=== PATIENT | male | born 1970 | race Two or more races ===

== ENCOUNTER 2019-05-23 14:50 | Inpatient (IN) | payer MEDICAID ==
[~2019-05-23] VITALS: Ht 165.1 cm; Wt 80.0 kg
[2019-05-23] MEDS ORDERED: UNOBMED (14:57)
--- NOTE | 2019-05-23 15:05 | Emergency Room Report ---
History of Present Illness General Chief Complaint: Back Pain-No Injury Source: Patient Present Illness HPI Patient is a 48-year-old male presented after increased left-sided flank pain. Patient reports having intermittent episodes of pain to the left flank radiating to his groin area. He reports having symptoms for approximately 1 month. This had waxed and waned. He denies any vomiting. He denies any fever. He had been having some intermittent episodes of dysuria. He had prior history of hematuria on urinary testing per his primary care physician. He had been taking medications only for cholesterol. He denies any recent trauma. He reports having a recent prostate check and was told that he had a normal prostate. He does report having some urinary hesitancy.Patient had been having symptoms intermittently for approximately a month. Allergies: Coded Allergies: No Known Allergies (Unverified , 05/23/19) Patient History Past Medical History: see triage record Reviewed Nursing Documentation: PMH: Agreed; PSxH: Agreed Nursing Documentation-PMH Past Medical History: No History, Except For Review of Systems All Other Systems: negative except mentioned in HPI Physical Exam Vital Signs Date Time Temp Pulse Resp B/P (MAP) Pulse Ox O2 Delivery O2 Flow Rate FiO2 05/23/19 14:53 98.4 84 16 126/90 (102) 97 Room Air General Appearance: well appearing, no apparent distress, alert, GCS 15 Head: normocephalic, atraumatic ENT: hearing grossly normal, normal voice Neck: full range of motion, supple Respiratory: no respiratory distress, speaking full sentences Cardiovascular #1: normal inspection Gastrointestinal: normal inspection, non tender, soft Genitourinary: CVA tenderness (L) Musculoskeletal: no calf tenderness Neurologic: normal inspection, alert, oriented x3, responsive, tablet coater III-XII nml as tested, normal gait Psychiatric: mood/affect normal Skin: no rash Medical Decision Making Diagnostic Impression: Primary Impression: Kidney stone on right side Additional Impressions: Left ureteral calculus Gallstones ER Course Patient presented for left flank pain. Differential diagnosis include was not limited to pancreatitis, ureteral stone, testicular torsion, hernia among others.Patient was noted to have some CVA tenderness on the left side. Urinalysis showed minimal leukocytosis. Patient was given IV fluids as well as IV pain medications. He was started on IV antibiotics. CT of the abdomen pelvis read by radiology showed 8-9 mm left ureteral stone. Patient was noted to have continued discomfort. Dr. Oconnor was contacted for urology consult. Dr. Ar Urias was contacted for inpatient management due to capitated physician. Labs Test 05/23/19 15:15 White Blood Count 9.2 K/UL (4.8-10.8) Red Blood Count 4.96 M/UL (4.70-6.10) Hemoglobin 15.2 G/DL (14.2-18.0) Hematocrit 42.9 % (42.0-52.0) Mean Corpuscular Volume 87 FL (80-99) Mean Corpuscular Hemoglobin 30.7 PG (27.0-31.0) Mean Corpuscular Hemoglobin Concent 35.4 G/DL (32.0-36.0) Red Cell Distribution Width 11.2 % (11.6-14.8) Platelet Count 199 K/UL (150-450) Mean Platelet Volume 7.2 FL (6.5-10.1) Neutrophils (%) (Auto) 60.9 % (45.0-75.0) Lymphocytes (%) (Auto) 27.3 % (20.0-45.0) Monocytes (%) (Auto) 7.1 % (1.0-10.0) Eosinophils (%) (Auto) 3.8 % (0.0-3.0) Basophils (%) (Auto) 1.0 % (0.0-2.0) Urine Color Yellow Urine Appearance Clear Urine pH 6 (4.5-8.0) Urine Specific [place] 1.015 (1.005-1.035) Urine Protein 2+ (NEGATIVE) Urine Glucose (UA) Negative (NEGATIVE) Urine Ketones 1+ (NEGATIVE) Urine Blood 4+ (NEGATIVE) Urine Nitrite Negative (NEGATIVE) Urine Bilirubin Negative (NEGATIVE) Urine Urobilinogen 1 MG/DL (0.0-1.0) Urine Leukocyte Esterase 2+ (NEGATIVE) Urine RBC 5-10 /HPF (0 - 0) Urine WBC 2-4 /HPF (0 - 0) Urine Squamous Epithelial Cells None /LPF (NONE/OCC) Urine Calcium Oxalate Crystals Few /LPF (NONE) Urine Bacteria Few /HPF (NONE) Sodium Level 145 MMOL/L (136-145) Potassium Level 3.2 MMOL/L (3.5-5.1) Chloride Level 108 MMOL/L (98-107) Carbon Dioxide Level 26 MMOL/L (21-32) Anion Gap 11 mmol/L (5-15) Blood Urea Nitrogen 13 mg/dL (7-18) Creatinine 1.3 MG/DL (0.55-1.30) Estimat Glomerular Filtration Rate 58.7 mL/min (>60) Glucose Level 128 MG/DL (74-106) Calcium Level 9.1 MG/DL (8.5-10.1) Total Bilirubin 0.5 MG/DL (0.2-1.0) Aspartate Amino Transf (AST/SGOT) 22 U/L (15-37) Alanine Aminotransferase (ALT/SGPT) 30 U/L (12-78) Alkaline Phosphatase 44 U/L (46-116) Total Protein 7.2 G/DL (6.4-8.2) Albumin 3.9 G/DL (3.4-5.0) Globulin 3.3 g/dL Albumin/Globulin Ratio 1.2 (1.0-2.7) Lipase 254 U/L (73-393) Last Vital Signs Date Time Temp Pulse Resp B/P (MAP) Pulse Ox O2 Delivery O2 Flow Rate FiO2 05/23/19 14:53 98.4 84 16 126/90 (102) 97 Room Air Status: improved Disposition: ADMITTED INPATIENT Condition: Stable Kem Frances MD May 23, 2019 15:05
[2019-05-23] MEDS ORDERED: Ketorolac 30mg Inj IV ONE (15:15)
--- NOTE | 2019-05-23 15:15 | NUR ---
ED Nurse Note: dr annette ortiz pt with bedside us. pt tolerates well no n/v
--- NOTE | 2019-05-23 15:27 | NUR ---
ED Nurse Note: pt to ct scan via wc with tech
--- NOTE | 2019-05-23 15:36 | NUR ---
ED Nurse Note: returned from ct
[2019-05-23 15:40] LABS: APPEARANCE,URINE CLEAR; BILIRUBIN, URINE NEGATIVE (NEGATIVE); GLUCOSE, URINE (UA) NEGATIVE (NEGATIVE); KETONES,URINE 1+ (NEGATIVE); LEUKOCYTE ESTERASE ,URINE 2+ (NEGATIVE); NITRITE,URINE NEGATIVE (NEGATIVE); PH,URINE 6 (4.5-8.0); PROTEIN,URINE 2+ (NEGATIVE); UROBILINOGEN,URINE 1 MG/DL (0.0-1.0)
[2019-05-23] MEDS ORDERED: Tamsulosin 0.4mg cap ORAL ONE (15:45)
[2019-05-23 15:47] LABS: COLOR,URINE YELLOW
[2019-05-23 15:48] LABS: EOSINOPHILS % (AUTO) 3.8 % (0.0-3.0); HEMATOCRIT 42.9 % (42.0-52.0); HEMOGLOBIN 15.2 G/DL (14.2-18.0); LYMPHOCYTES % (AUTO) 27.3 % (20.0-45.0); MEAN CORPUSCULAR VOLUME 87 FL (80-99); MONOCYTES % (AUTO) 7.1 % (1.0-10.0); NEUTROPHILS % (AUTO) 60.9 % (45.0-75.0); PLATELET COUNT 199 K/UL (150-450); RED BLOOD COUNT 4.96 M/UL (4.70-6.10); RED CELL DISTRIBUTION WIDTH 11.2 % (11.6-14.8); WHITE BLOOD COUNT 9.2 K/UL (4.8-10.8)
[2019-05-23 15:49] LABS: ANION GAP 11 mmol/L (5-15); BLOOD UREA NITROGEN 13 mg/dL (7-18); CALCIUM 9.1 MG/DL (8.5-10.1); CARBON DIOXIDE 26 MMOL/L (21-32); CHLORIDE 108 MMOL/L (98-107); CREATININE 1.3 MG/DL (0.55-1.30); POTASSIUM 3.2 MMOL/L (3.5-5.1); SODIUM 145 MMOL/L (136-145)
[2019-05-23 15:54] LABS: ALANINE AMINOTRANSFERASE 30 U/L (12-78); ALBUMIN 3.9 G/DL (3.4-5.0); ALBUMIN/GLOBULIN RATIO 1.2 (1.0-2.7); ALKALINE PHOSPHATASE 44 U/L (46-116); ASPARTATE AMINO TRANSFERASE 22 U/L (15-37); BILIRUBIN,TOTAL 0.5 MG/DL (0.2-1.0)
--- NOTE | 2019-05-23 16:10 | Diagnostic Imaging Report ---
Indication: Pain, hematuria Technique: Spiral acquisitions obtained through the abdomen and pelvis. No oral contrast utilized, per emergency room physician request No IV contrast utilized, per referring physician request.. Multiplanar reconstructions were generated. Total dose length product 764.09 mGycm. CTDIvol(s) 13.55 mGy. Dose reduction achieved using automated exposure control Comparison: None Findings: There is a 9 x 5 mm calculus within the distal left ureter, approximately 1 cm proximal to the ureterovesical junction. This results in moderate left hydroureter and moderate left hydronephrosis. There is also some perinephric fat stranding. A punctate calyceal calculus is seen in a left upper pole calyx, and a 3 mm calculus is seen in a lower pole calyx. Multiple calculi are also seen in the right renal collecting system, largest in an interpolar region calyx measuring 8 mm diameter. Dependent milk of calcium type calcifications are also seen layering in at least 2 right renal cysts. No right hydronephrosis hydroureter, or ureteral calculi demonstrated. The bladder is empty. Lack of IV contrast limits assessment of the renal parenchyma. Multiple cysts are demonstrated bilaterally. Lack of IV contrast limits assessment of the other solid organs. The gallbladder contains multiple gallstones. The liver, bile ducts, pancreas, spleen, adrenals are all unremarkable. No retroperitoneal or mesenteric mass or adenopathy. No pelvic mass or adenopathy. The prostate is slightly prominent. There is a small left inguinal hernia contains only fat. There are a few tiny diverticula. The appendix is normal. No small bowel distention no free or loculated intraperitoneal gas or fluid is evident. There is a small to moderate-sized sliding-type hiatal hernia. The remainder of the stomach is unremarkable. The duodenum is unremarkable. The included lung bases demonstrate posterior dependent atelectatic changes. The bones demonstrate bilateral L5 spondylolysis, grade 1 L5 on S1 spondylolisthesis. Impression: Positive for 9 x 5 mm distal left ureteral calculus. This results in moderate left hydronephrosis and hydroureter Bilateral intrarenal calculi, as described Bilateral renal cysts. 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 Frances in the emergency room at the time of interpretation The CT scanner at [facility] is accredited by the [employer] and the scans are performed using protocols designed to limit radiation exposure to as low as reasonably achievable to attain images of sufficient resolution adequate for diagnostic evaluation.
--- NOTE | 2019-05-23 16:57 | NUR ---
ED Nurse Note: family at bs with pt
--- NOTE | 2019-05-23 17:46 | NUR ---
ED Nurse Note: pt to be admitted here. no swabs obtained as pt from home with no prior admission.
[2019-05-23] MEDS ORDERED: cefTRIAXone 1 GM in NS 55 ML IVPB ONE (18:00)
[2019-05-23 18:18] VITALS: BP 139/52
--- NOTE | 2019-05-23 18:19 | NUR ---
ED Nurse Note: pt states pain is returning. md boyd
[2019-05-23] MEDS ORDERED: Morphine Sulfate 4mg/ml Inj (IV USE ONLY) IVP ONE (18:30)
--- NOTE | 2019-05-23 18:45 | NUR ---
ED Nurse Note: attempted to give rn on 3 east report rn unavailable.
--- NOTE | 2019-05-23 19:05 | NUR ---
ED Nurse Note: attempted to recall report to [facility] [place] not availalbe at this time per Merlene aleman
--- NOTE | 2019-05-23 19:22 | NUR ---
ED Nurse Note: Patient is resting comfortably with family member at bedside, vital signs are stable.
[2019-05-23 19:23] VITALS: BP 136/97
[2019-05-23] MEDS ORDERED: Morphine Sulfate 2mg/ml Inj(IV/IM USE ONLY) IVP PRN ×2 (19:30)
--- NOTE | 2019-05-23 19:53 | NUR ---
ED Nurse Note: Patient cleared for transport to floor. called and gave report to luz elena GONZALEZ. Patient A&Ox4, accompanied to floor by [facility] without incident.
--- NOTE | 2019-05-23 20:00 | NUR ---
NURSE NOTES: Telephone report taken from ER, CARLOS [place]. Patient to be transferred to floor briefly.
--- NOTE | 2019-05-23 20:10 | NUR ---
NURSE NOTES: Patient brought to the floor via hospital bed with ER Jae MAYS. Patient is able to ambulate to room bed. Family member at bedside. A&Ox4. No signs of distress on room air. Skin c/d/i, no issues. Complaint of pain 3/10, L side>R side flank and low back area. IV site Rt AC, c/d/i and patent. Bed in lowest position, call light within reach.
[2019-05-23 20:25] VITALS: BP 145/102
[2019-05-23] MEDS ORDERED: Ketorolac 60mg Inj IM ONE (22:15)
[2019-05-23] MEDS ORDERED: ceFAZolin 1gm/50ml Premix 50 ML IV ONE (22:15)
[2019-05-23] MEDS: Ketorolac 30mg Inj IM SCH (22:46)
--- NOTE | 2019-05-23 22:50 | NUR ---
NURSE NOTES: Dr. Oconnor came in and discussed surgery with patient. Consent was signed by patient for procedure as well as blood transfusion consent.
--- NOTE | 2019-05-23 23:30 | Consultation ---
DATE OF CONSULTATION: 05/23/2019 UROLOGY CONSULTATION CONSULTING PHYSICIAN: Saud Oconnor M.D. ATTENDING/REFERRING PHYSICIAN: Dr. Kem Frances of the emergency department. CHIEF COMPLAINT/HISTORY OF PRESENT ILLNESS: I was asked by Dr. Frances to evaluate this 48-year-old gentleman with a history nephrolithiasis regarding a 9 mm distal left ureteral stone with hydronephrosis and colic secondary to the same. Briefly, the patient has a history of kidney stones in the past. He has been able to pass the stones and has never had to have surgery, who presented to the hospital however with a one-month history of intermittent, but ongoing left flank pain. This was worsening over the last two to three days time. He denied any history of nausea, vomiting, or fevers or chills. He had a CT scan done revealing a large distal left ureteral stone and as such, I was asked to evaluate the patient. PAST MEDICAL HISTORY: 1. Kidney stones. 2. Hypercholesterolemia. 3. Prediabetes. PAST SURGICAL HISTORY: None. MEDICATIONS: Generally include only cholesterol medication. ALLERGIES: No known drug allergies. SOCIAL HISTORY: Unremarkable tobacco or alcohol or drug use. 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 FAMILY HISTORY: Noncontributory. REVIEW OF SYSTEMS: A 14-system review of systems was essentially unremarkable outside of what is described above. PHYSICAL EXAMINATION: GENERAL: The patient is a middle-aged gentleman, awake, alert and oriented x4, pleasant, in no obvious distress. HEENT: NC/AT. EOMI. NECK: Supple. Full range of motion. Oropharynx clear. CHEST: Within normal limits. ABDOMEN: Soft, nontender, and nondistended. EXTREMITIES: Warm and well perfused. No cyanosis, clubbing, or edema. BACK: No current CVA tenderness to percussion. NEUROLOGIC: Grossly nonfocal. LABORATORY DATA: White blood cell count 9.2, hematocrit 42.9, platelets 199. Sodium 145, potassium 3.2, chloride 108, bicarbonate 26, BUN 13, and creatinine 1.3. Glucose 128. Calcium 9.1. LFTs within normal limits. Urinalysis, specific gravity 1.015, pH 6.0, 2+ protein, 1+ ketones, 4+ occult blood, 2+ leukocyte esterase. Microanalysis with 5 to 10 red and 2 to 4 white blood cells per high-power field, and few bacteria seen. DIAGNOSTIC IMAGING: CT scan of the abdomen and pelvis reveals a 9 x 5 mm distal left ureteral calculus with moderate hydroureteronephrosis secondary to the same. There are bilateral intrarenal calculi as well. There were also bilateral renal cysts. There is cholelithiasis. There is diverticulosis without diverticulitis. There is a small to moderate size sliding-type hiatal hernia. ASSESSMENT AND PLAN: In summary, the patient is a 48-year-old gentleman with a history of nephrolithiasis, who presents to the hospital with left-sided abdominal flank pain on and off for one month's time, but worsening over time. Workup with a CT scan revealed a 9 mm distal left ureteral stone with moderate hydroureteronephrosis secondary to same. Physical exam is currently unremarkable. Laboratory data is likewise unremarkable outside of some hypokalemia. Diagnostic imaging reveals the stone described above. I discussed these findings today with the patient and his family at the bedside. The risks, benefits, and alternatives of left ureteroscopy with laser lithotripsy and double-J stent placement were discussed and informed consent was obtained. The patient will be kept NPO after breakfast tomorrow for surgery. I will start him on some prophylactic antibiotics for the operating room. I will also put him on a regular dose of Toradol for pain control. We will repeat some morning blood work to ensure that there is no issue with his electrolytes and plan for left ureteroscopy and laser lithotripsy tomorrow. Thank you for allowing me to participate in the care of this nice gentleman. Please do not hesitate to contact me with any questions that you may further have regarding his care. I will be happy to see him with you as needed. Saud Oconnor M.D. DR: TANVI JOB#: [id number] CC:
[2019-05-24] VITALS (13 sets, daily range): BP systolic 93–138; BP diastolic 62–84
[2019-05-24] MEDS: Ketorolac 30mg Inj IM SCH ×4 (04:52→22:35)
[2019-05-24 06:39] LABS: BASOPHILS % (AUTO) 0.8 % (0.0-2.0); EOSINOPHILS % (AUTO) 4.7 % (0.0-3.0); HEMATOCRIT 42.3 % (42.0-52.0); HEMOGLOBIN 14.3 G/DL (14.2-18.0); LYMPHOCYTES % (AUTO) 28.6 % (20.0-45.0); MEAN CORPUSCULAR VOLUME 90 FL (80-99); MONOCYTES % (AUTO) 9.2 % (1.0-10.0); NEUTROPHILS % (AUTO) 56.8 % (45.0-75.0); PLATELET COUNT 179 K/UL (150-450); RED BLOOD COUNT 4.71 M/UL (4.70-6.10); RED CELL DISTRIBUTION WIDTH 12.4 % (11.6-14.8); WHITE BLOOD COUNT 8.2 K/UL (4.8-10.8)
[2019-05-24 06:48] LABS: ANION GAP 9 mmol/L (5-15); BLOOD UREA NITROGEN 15 mg/dL (7-18); CARBON DIOXIDE 27 MMOL/L (21-32); CHLORIDE 110 MMOL/L (98-107); CREATININE 1.2 MG/DL (0.55-1.30); POTASSIUM 3.5 MMOL/L (3.5-5.1); SODIUM 146 MMOL/L (136-145)
--- NOTE | 2019-05-24 07:35 | NUR ---
NURSE NOTES: WALKING ROUNDS DONE WITH OUTGOING RN. PATIENT AWAKE IN BED. QUESTIONS ANSWERED. NEEDS MET.DISCUSSED PLAN OF CARE. VERBALIZED UNDERSTANDING. PT. AWARE OF NPO STATUS FOR SURGERY THIS EVENING. DENIES PAIN AT THIS TIME. BED IN LOWEST LOCKED POSITION. CALL LIGHT WITHIN REACH.
--- NOTE | 2019-05-24 07:41 | NUR ---
HAND-OFF: Report given to CARLOS Cody. patient is awake and VS stable. Consents signed endorsed to day shift.
[2019-05-24] MEDS ORDERED: 1/2 NS 1000ml IV ONE (10:01)
--- NOTE | 2019-05-24 12:31 | Anethesia Preoperative Eval ---
Anesthesia Pre-op PMH/ROS General Date of Evaluation: May 24, 2019 Time of Evaluation: 12:27 Anesthesiologist: Anisa ASA Score: ASA 2 Mallampati Score Class I : Soft palate, uvula, fauces, pillars visible Class II: Soft palate, uvula, fauces visible Class III: Soft palate, base of uvula visible Class IV: Only hard plate visible Mallampati Classification: Class II Surgeon: Damian Diagnosis: Uretheral stone Surgical Procedure: Cysto lithotrypsy Anesthesia History: none Family History: no anesthesia problems Allergies: Coded Allergies: No Known Allergies (Unverified , 05/23/19) Medications: see eMAR Patient NPO?: Yes NPO Date: May 24, 2019 NPO Time: 0900 Past Medical History Cardiovascular: Denies: HTN, CAD, MO, valve dz, arrhythmia, other Pulmonary: Denies: asthma, COPD, ZITA, other Gastrointestinal/Genitourinary: Reports: GERD, other - kidney stones; Denies: CRI, ESRD Neurologic/Psychiatric: Denies: dementia, CVA, depression/anxiety, TIA, other Endocrine: Denies: DM, hypothyroidism, steroids, other HEENT: Denies: cataract (L), cataract (R), glaucoma, LAC COURTE OREILLES (L), LAC COURTE OREILLES (R), other Hematology/Immune: Denies: anemia, DVT, bleeding disorder, other Musculoskeletal/Integumentary: Denies: OA, RA, DJD, DDD, edema, other Other: other - overweight PMH Narrative: as above admitted for worsening L flank pain Kidney stone on CT scan PSxH Narrative: None Anesthesia Pre-op Phys. Exam Physician Exam Last Vital Signs Date Time Temp Pulse Resp B/P (MAP) Pulse Ox O2 Delivery O2 Flow Rate FiO2 05/24/19 12:00 97.8 20 119/79 (92) 96 05/24/19 09:00 Room Air 05/24/19 08:00 64 Constitutional: NAD Neurologic: CN 2-12 intact Cardiovascular: RRR, no M/R/G Respiratory: CTA Gastrointestinal: S/NT/ND Airway Exam Mallampati Score: Class II MO: full Neck: flexible ROM: full Teeth: intact Dentures: no upper, no lower Anesthesia Pre-op A/P Labs Hematology Test 05/23/19 15:15 05/24/19 04:45 White Blood Count 9.2 K/UL (4.8-10.8) 8.2 K/UL (4.8-10.8) Red Blood Count 4.96 M/UL (4.70-6.10) 4.71 M/UL (4.70-6.10) Hemoglobin 15.2 G/DL (14.2-18.0) 14.3 G/DL (14.2-18.0) Hematocrit 42.9 % (42.0-52.0) 42.3 % (42.0-52.0) Mean Corpuscular Volume 87 FL (80-99) 90 FL (80-99) Mean Corpuscular Hemoglobin 30.7 PG (27.0-31.0) 30.4 PG (27.0-31.0) Mean Corpuscular Hemoglobin Concent 35.4 G/DL (32.0-36.0) 33.9 G/DL (32.0-36.0) Red Cell Distribution Width 11.2 % (11.6-14.8) L 12.4 % (11.6-14.8) Platelet Count 199 K/UL (150-450) 179 K/UL (150-450) Mean Platelet Volume 7.2 FL (6.5-10.1) 7.6 FL (6.5-10.1) Neutrophils (%) (Auto) 60.9 % (45.0-75.0) 56.8 % (45.0-75.0) Lymphocytes (%) (Auto) 27.3 % (20.0-45.0) 28.6 % (20.0-45.0) Monocytes (%) (Auto) 7.1 % (1.0-10.0) 9.2 % (1.0-10.0) Eosinophils (%) (Auto) 3.8 % (0.0-3.0) H 4.7 % (0.0-3.0) H Basophils (%) (Auto) 1.0 % (0.0-2.0) 0.8 % (0.0-2.0) Coagulation Test 05/24/19 11:45 Prothrombin Time Pending Prothromb Time International Ratio Pending Activated Partial Thromboplast Time Pending Chemistry Test 05/23/19 15:15 05/24/19 04:45 Sodium Level 145 MMOL/L (136-145) 146 MMOL/L (136-145) H Potassium Level 3.2 MMOL/L (3.5-5.1) L 3.5 MMOL/L (3.5-5.1) Chloride Level 108 MMOL/L (98-107) H 110 MMOL/L (98-107) H Carbon Dioxide Level 26 MMOL/L (21-32) 27 MMOL/L (21-32) Anion Gap 11 mmol/L (5-15) 9 mmol/L (5-15) Blood Urea Nitrogen 13 mg/dL (7-18) 15 mg/dL (7-18) Creatinine 1.3 MG/DL (0.55-1.30) 1.2 MG/DL (0.55-1.30) Estimat Glomerular Filtration Rate 58.7 mL/min (>60) > 60 mL/min (>60) Glucose Level 128 MG/DL (74-106) H 98 MG/DL (74-106) Calcium Level 9.1 MG/DL (8.5-10.1) 9.0 MG/DL (8.5-10.1) Total Bilirubin 0.5 MG/DL (0.2-1.0) Aspartate Amino Transf (AST/SGOT) 22 U/L (15-37) Alanine Aminotransferase (ALT/SGPT) 30 U/L (12-78) Alkaline Phosphatase 44 U/L (46-116) L Total Protein 7.2 G/DL (6.4-8.2) Albumin 3.9 G/DL (3.4-5.0) Globulin 3.3 g/dL Albumin/Globulin Ratio 1.2 (1.0-2.7) Lipase 254 U/L (73-393) Risk Assessment & Plan Assessment: ASA 2 Plan: GA with LMA Status Change Before Surgery: No Pre-Antibiotics Drug: as scheduled Itz Lange MD May 24, 2019 12:31
[2019-05-24 13:16] LABS: INR 0.9 (0.9-1.1)
--- NOTE | 2019-05-24 15:45 | History and Physical Report ---
DATE OF ADMISSION: 05/23/2019 CHIEF COMPLAINT: Kidney stone. HISTORY OF PRESENT ILLNESS: The patient is a 48-year-old male. He has a history of prediabetes, hyperlipidemia, presented with complaints of left-sided flank and groin pain. He presented to the emergency room, where he had a CAT scan that showed an 8 mm stone in the left ureter. He has been evaluated by Urology. He is now scheduled to have surgery. The patient otherwise without complaints. Denies any fevers or chills. No nausea. No vomiting. PAST MEDICAL HISTORY: As above. PAST SURGICAL HISTORY: None. CURRENT MEDICATIONS: Reconciled and reviewed. ALLERGIES: None. FAMILY HISTORY: Significant for diabetes. SOCIAL HISTORY: Negative for tobacco, ethanol, or drugs. REVIEW OF SYSTEMS: Unremarkable except for left flank pain. PHYSICAL EXAMINATION: VITAL SIGNS: Temperature 97.4, pulse 62, respirations 17, blood pressure 115/68. GENERAL: The patient is well-developed, no apparent distress. HEART: Regular rate and rhythm. LUNGS: Clear. ABDOMEN: Soft. There is flank pain noted. EXTREMITIES: Without clubbing, cyanosis, or edema. LABORATORY AND DIAGNOSTIC DATA: White count 9, hemoglobin 15, platelet count of 199. Sodium 145, potassium 3.5, chloride 110, BUN 15, creatinine 1.2. Urine showed 5-[address] scan of the abdomen shows a 9 x 5 mm calculus in the distal left ureter. ASSESSMENT: This is a pleasant male, was admitted with an impacted large stone. He is medically stable for surgery. We will do an EKG. He will be hydrated. His potassium will be replaced. Perioperative risk is average for age and sex, would proceed as planned. The patient will continue IV hydration, anti-inflammatories, and IV pain medications as needed. Ar Urias M.D. DR: CAMILO JOB#: [id number] CC:
[2019-05-24] MEDS: ceFAZolin sod 1 GM in D5W 55 ML IVPB SCH ×2 (15:51→22:15)
--- NOTE | 2019-05-24 15:56 | NUR ---
INSURANCE UPDATED CLINICALS and REVIEW HAVE BEEN FAXED TO: LORI [facility]ARE PLEASE FAX THE REVIEW AND CLINICAL TO FX: [phone] PH: [phone] AUTH# [id number]
--- NOTE | 2019-05-24 16:18 | NUR ---
CASE MANAGEMENT:REVIEW 48 YR OLD MALE FROM HOME TO ER CC: LLQ PAIN. UNABLE TO URINATE SI: RENAL STONE. GALLSTONES 98.5 84 16 126/90 97% ON RA K-3.2 GLUCOSE+128 IS: IV TORADOL X1 TAMSULOSIN CT ABD/PELVIS : TO MED/SURG 3 EAST PLAN: SCHEDULED FOR SURGERY
[2019-05-24] MEDS ORDERED: Iothalamate Meglumine 60% 30ML INJ ONE (16:54)
[2019-05-24] MEDS ORDERED: fentaNYL 100 mcg/2 mL IV ONE (16:59)
[2019-05-24] MEDS ORDERED: Propofol 200mg/20ml IV ONE (16:59)
[2019-05-24] MEDS ORDERED: Lidocaine 1% MPF 10mg/ml 5ml ONE (16:59)
[2019-05-24] MEDS ORDERED: Midazolam 2mg/2ml Inj ONE (16:59)
--- NOTE | 2019-05-24 17:00 | NUR ---
NURSE NOTES: PATIENT SENT TO SURGERY VIA BED ACCOMPANIED BY RN AND TRANSPORTER. PATIENT IDENTIFIERS USED AT BEDSIDE. FAMILY PRESENT AND WILL WAIT IN WR DOWN IN LL.
[2019-05-24] MEDS ORDERED: cefOXitin 1gm Inj ONE (17:10)
[2019-05-24] MEDS ORDERED: Zemuron 50mg/5ml Inj IV ONE (17:11)
[2019-05-24] MEDS ORDERED: LR 1000ml 1,000 ML IVLG SCH (17:20)
--- NOTE | 2019-05-24 17:23 | Pre-Procedure Note/Attestation ---
Pre-Procedure Note/Attestation Complete Prior to Procedure Planned Procedure: left Procedure Narrative: Ureteroscopy, laser lithotripsy, JJ stent, cystoscopy and fluoroscopy Indications for Procedure Pre-Operative Diagnosis: L ureteral stone/ hydro/ colic Attestation I attest that I discussed the nature of the procedure; its benefits; risks and complications; and alternatives (and the risks and benefits of such alternatives ), prior to the procedure, with the patient (or the patient's legal automobile sales representative). I attest that, if there was a reasonable possibility of needing a blood transfusion, the patient (or the patient's legal automobile sales representative) was given the [facility] standardized written summary, pursuant to the [place] Blood Safety Act ([place] Health and Safety Code # 1645, as amended). I attest that I re-evaluated the patient just prior to the surgery and that there has been no change in the patient's H&P, except as documented below: Saud Oconnor M.D. May 24, 2019 17:23
[2019-05-24] MEDS ORDERED: DiphenhydrAMINE 50mg/ml Inj IVP PRN (17:30)
[2019-05-24] MEDS ORDERED: Hydromorphone 0.5mg/0.5ml inj IVP PRN (17:30)
[2019-05-24] MEDS ORDERED: Meperidine 50mg/ml Inj(FOR RIGORS ONLY) IV PRN (17:30)
[2019-05-24] MEDS ORDERED: LR 1000ml ONE (17:30)
[2019-05-24] MEDS ORDERED: Metoclopramide 10mg/2ml Inj IVP PRN (17:30)
[2019-05-24] MEDS ORDERED: NS Irrig 1000ml IRRIG ONE (17:59)
--- NOTE | 2019-05-24 18:10 | Operative Note - PDOC ---
Operative Note Operative Note Date of Operation/Procedure: May 24, 2019 Chief Complaint: L ureteral stone Pre-op Diagnosis: L ureteral stone/ hydro/ colic Procedure: Left ureteroscopy, laser litho, JJ stent, cysto and fluoro Post-op Diagnosis: same as pre-op Operative Findings: consistent w/pre-op dx studies Surgeon: Anastasia Anesthesia: general Specimen: none Complications: none Condition: stable Estimated Blood Loss: none Drains: other - JJ stent Implant(s) used?: No Indications for Procedure L ureteral stone/ hydro/ colic Saud Oconnor M.D. May 24, 2019 18:10
--- NOTE | 2019-05-24 18:31 | Immediate Post-Op Evaluation ---
Immediate Post-Op Evalulation Immediate Post-Op Evalulation Procedure: Cysto, L uretherogram laser lithotripsy Date of Evaluation: May 24, 2019 Time of Evaluation: 18:29 IV Fluids: 800 Blood Products: none Estimated Blood Loss: min Urinary Output: n/a Blood Pressure Systolic: 96 Blood Pressure Diastolic: 54 Pulse Rate: 68 Respiratory Rate: 20 O2 Sat by Pulse Oximetry: 98 Temperature (Fahrenheit): 97.7 Pain Score (1-10): 1 Nausea: No Vomiting: No Complications none Patient Status: reacts, patent, none Hydration Status: adequate Drug: Cefoxitin 1gr. Given Within 1 Hr of Incision: Yes Time Given: 17:54 Itz Lange MD May 24, 2019 18:31
--- NOTE | 2019-05-24 19:29 | NUR ---
HAND-OFF: Report given to JUAN DIEGO VENCES LVN.
--- NOTE | 2019-05-24 19:50 | NUR ---
NURSE NOTES:Patient received from FREDDY Cornejo FROM [facility]. patient S/P Left ureteroscopy, laser lithotripsy JJ stent, cystoscopy and fluoroscopy . Patient vss, afebrile Patient on O2 2L via n/c in placed . Rac g# [address] Bridgett grigsby notified and aware patient location.315 bed 2. Awaiting to call back if any additional orders . Patient safety . fall implemented . call light within reach . bed in low position at all times . Bed alarm on .
--- NOTE | 2019-05-24 20:15 | Procedure Note ---
DATE OF PROCEDURE: 05/24/2019 PREOPERATIVE DIAGNOSIS: Distal left ureteral stone with hydronephrosis and colic secondary to same. POSTOPERATIVE DIAGNOSIS: Distal left ureteral stone with hydronephrosis and colic secondary to same. PROCEDURE PERFORMED: 1. Left ureteroscopy. 2. Laser lithotripsy. 3. Double-J stent placement. 4. Cystoscopy and fluoroscopy. SURGEON: Saud Oconnor M.D. ANESTHESIA: General/LMA. ESTIMATED BLOOD LOSS: None. IV FLUIDS: IV crystalloid only. DRAINS, TUBES, AND CATHETERS: 6-Latvian x 26 centimeter double-J stent left indwelling. SPECIMENS: None. COMPLICATIONS: None. OPERATIVE INDICATION: The patient is a 48-year-old gentleman with a history of a 9 mm distal left ureteral stone with hydronephrosis and colic secondary to same. After evaluation and consultation with me, he elected to undergo the procedure as described above. Once medical clearance was obtained, he was scheduled for this procedure at [facility] on May 24, 2019. OPERATIVE NOTE IN DETAIL: The patient was brought to the operating room and placed on the table in supine position. General anesthesia was then induced. Once the patient had his LMA in place, he was repositioned in dorsal lithotomy, draped and prepped in the usual sterile fashion. Using a semi-rigid ureteroscope, the patient's urethral meatus was calibrated and the scope was passed along the length of the urethra and prostate. These were within normal limits. The bladder was then entered and inspected. There was no evidence of masses, tumors, or stones and both ureteral orifices were identified. Attention was turned to the left ureteral orifice into which a 0.035 Glidewire was cannulated and used to pass the scope into the distal ureter without much problem. Almost immediately the stone was encountered. Using a 365 holmium laser fiber at a setting of 0.8 joules and 8 hertz, I proceeded to fragment the stone in its entirety. Once this was done, I could pass the scope into the mid and proximal ureter with no further evidence of stone obstruction or other abnormality. A descending ureteroscopy confirmed the same and that there were no significant remaining stone fragments. The guidewire was left in place and the ureteroscope was out for the cystoscope. This was positioned at the left ureteral orifice and used to pass a 6-Latvian x 26 cm double-J stent into the left renal collecting system with a good curl noted fluoroscopically within the kidney and cystoscopically within the bladder. Once the stent was in place, the bladder was evacuated through the scope and the scope was removed. The patient was taken out of dorsal lithotomy and placed back in supine position. He was cleaned dried and dressed. He was awakened and extubated without difficulty and transported to recovery in stable condition. I was present and scrubbed for the entire duration of this case. All needle, sponge, and instrument counts reported correct. Saud Oconnor M.D. DR: Vel JOB#: [id number] CC:
[2019-05-25] VITALS (7 sets, daily range): BP systolic 112–124; BP diastolic 56–78
[2019-05-25] MEDS: Ketorolac 30mg Inj IM SCH ×2 (04:38→10:15)
--- NOTE | 2019-05-25 06:00 | NUR ---
NURSE NOTES:Patient no bleeding voiding light pink color 1,150 urine output . will continue to monitor .
[2019-05-25] MEDS: ceFAZolin sod 1 GM in D5W 55 ML IVPB SCH (06:03)
--- NOTE | 2019-05-25 07:20 | NUR ---
HAND-OFF: Report given to Glo Cornejo
--- NOTE | 2019-05-25 07:33 | NUR ---
NURSE NOTES: WALKING ROUNDS DONE WITH OUTGOING RN. PATIENT AWAKE IN BED HAVING BREAKFAST. QUESTIONS ANSWERED. NEEDS MET.DISCUSSED PLAN OF CARE FOR THE DAY. VERBALIZED UNDERSTANDING. VOIDING W/O DIFFICULTY. URINE LIGHT PINK IN COLOR. DENIES PAIN. BED IN LOWEST AND LOCKED POSITION. CALL LIGHT WITHIN REACH.
[2019-05-25] MEDS ORDERED: CEPHALEXIN500 MG ORAL (08:15)
[2019-05-25] MEDS ORDERED: NORCO 10-325 T1 EACH ORAL (08:15)
--- NOTE | 2019-05-25 09:15 | NUR ---
NURSE NOTES: DISCHARGE ORDER RECEIVED. PATIENT AWARE. [place] GET [place] FILL[place] [facility] [place]
--- NOTE | 2019-05-25 11:00 | NUR ---
NURSE NOTES: DISCHARGE INSTRUCTION AND PATIENT EDUCATION REVIEWED WITH PATIENT AND DAUGHTER AT BEDSIDE. RC FILLED AND GIVEN T PATIENT. VERBALIZED UNDERSTANDING. ALL BELONGINGS ACCOUNTED FOR. INSTRUCTED WILL F/U WITH DR. JACKSON IN OFFICE IN 2 WEEKS.
[2019-05-25] MEDS ORDERED: 1/2 NS 1000ml IV ONE (11:04)
[2019-05-25] MEDS ORDERED: Tubing IV Secondary IV ONE (11:04)
--- NOTE | 2019-05-25 11:18 | 48 Hour Post Anesthesia Eval ---
Post Anesthesia Evaluation Procedure: Cysto, L uretherogram laser lithotripsy Date of Evaluation: May 25, 2019 Time of Evaluation: 11:17 Blood Pressure Systolic: 124 0: 56 Pulse Rate: 68 Respiratory Rate: 20 Temperature (Fahrenheit): 97.6 O2 Sat by Pulse Oximetry: 98 Airway: patent Nausea: No Vomiting: No Pain Intensity: 2 Hydration Status: adequate Cardiopulmonary Status: stable Mental Status/LOC: patient returned to baseline Follow-up Care/Observations: n/a Post-Anesthesia Complications: none Follow-up care needed: N/A Itz Lange MD May 25, 2019 11:18
--- NOTE | 2019-05-25 13:03 | Diagnostic Imaging Report ---
Indication: Intraoperative imaging COMPARISON: None FINDINGS: Multiple fluoroscopic images were obtained intraoperatively. Cannulation of the left ureter with the advancement of a wire and subsequent double J ureteral stent placement are noted. IMPRESSION: Intraoperative imaging as described above
--- NOTE | 2019-05-25 14:44 | NUR ---
CASE MANAGEMENT:REVIEW 05/25/19 SI: POD #1 S/P LT URETEROSCOPY, LASER LITHOTRIPSY, DOUBLE J STENT PLACEMENT,CYSTOSCOPY AND FLUOROSCOPY 98.1 68 20 112/78 96% ON RA IS: IV ANCEF Q8HRS :MED/SURG 3 EAST PLAN: DISCHARGE HOME TODAY
--- NOTE | 2019-05-25 15:54 | Cardiology Report ---
APPROVED REPORT EKG Measurement Heart [id number] Sinus bradycardia Otherwise normal ECG
--- NOTE | 2019-05-26 | Discharge Summary ---
DATE OF ADMISSION: 05/23/2019 DATE OF DISCHARGE: 05/25/2019 ADMISSION DIAGNOSIS: Suspected left kidney stone. DISCHARGE DIAGNOSES: 1. Suspected left kidney stone. 2. Status post cystoscopy and stent placement. HOSPITAL COURSE: The patient presented with complaints of severe left-sided flank pain. He was diagnosed with a 5 x 9 mm kidney stone that was impacted in the left ureter. He was admitted and hydrated. He received IV pain medications. He underwent a cysto with stent placement. On discharge, his pain was improved. He was passing stones. The patient will be followed up as an outpatient in two weeks with Dr. Oconnor for stent removal. He has been discharged with antibiotics and pain medications. DISCHARGE MEDICATIONS: Please see discharge medication list for discharge medications. DIET: Regular. ACTIVITIES: [place]. Ar Urias M.D. DR: IBAN JOB#: [id number] CC:
== END 2019-05-25 11:05 | disposition home or self-care (01) | DRG 446 ==
LOC: EMR 16:01 → 3E 17:17 → EDBEDREQ 18:33 → 3E 05-24 09:42
PROC: 0T778DZ Dilation of Left Ureter with Intraluminal Device, Via Natural or Artificial Opening Endoscopic (ICD-10-PCS; 2019-05-24)
PROC: 0TC78ZZ Extirpation of Matter from Left Ureter, Via Natural or Artificial Opening Endoscopic (ICD-10-PCS; principal; 2019-05-24 17:30)
DX: N13.2 Hydronephrosis with renal and ureteral calculous obstruction (principal); E78.00 Pure hypercholesterolemia, unspecified; R73.03 Prediabetes
CPT/HCPCS: 36415; 74018; 74176; 74420; 76000; 80048; 80053; 81003; 83690; 85025; 85610; 85730; 93005; 96365; 96367; 96375; 99285; J2250; J2405; J8499

== ENCOUNTER 2019-09-25 10:54 | Inpatient (IN) | payer MEDICAID ==
[~2019-09-25] VITALS: Ht 175.3 cm; Wt 74.8 kg
[~2019-09-25 10:54] MED LIST: CEPHALEXIN500 MG ORAL; NORCO 10-325 T1 EACH ORAL; UNOBMED
--- NOTE | 2019-09-25 11:09 | Emergency Room Report ---
History of Present Illness General Chief Complaint: General Complaint Source: Patient Present Illness HPI Patient is a 48-year-old male brought in by family member after increased confusion. Patient had been reportedly having increased left shoulder pain for several days. He reportedly had been having increased confusion. He denies any symptoms at this time. Patient does not drink alcohol per his . He had not been vomiting. No prior history of diabetes. He does not take any psychiatric medications.Patient reportedly does not drink alcohol. He had previous hospitalization for kidney stones. He denies any other current medical complaints. Allergies: Coded Allergies: No Known Allergies (Unverified , 05/23/19) Patient History Past Medical History: see triage record Reviewed Nursing Documentation: PMH: Agreed; PSxH: Agreed Nursing Documentation-PMH Hx Hypertension: Yes Review of Systems All Other Systems: negative except mentioned in HPI Physical Exam Vital Signs Date Time Temp Pulse Resp B/P (MAP) Pulse Ox O2 Delivery O2 Flow Rate FiO2 09/25/19 10:57 98.2 87 19 143/97 (112) 94 Room Air Sp02 EP Interpretation: reviewed, normal General Appearance: normal inspection, well appearing, no apparent distress, alert, GCS 15 Head: atraumatic ENT: normal ENT inspection, hearing grossly normal, normal voice Neck: normal inspection, full range of motion, supple, no bony tend Respiratory: normal inspection, lungs clear, normal breath sounds, no respiratory distress, no retraction, no wheezing Cardiovascular #1: regular rate, rhythm, no edema Gastrointestinal: normal inspection, normal bowel sounds, non tender, soft, no guarding, no hernia Genitourinary: no CVA tenderness Musculoskeletal: normal inspection, back normal, normal range of motion Neurologic: normal inspection, alert, oriented x3, responsive, elementary instructional coach III-XII nml as tested, speech normal Psychiatric: normal inspection, judgement/insight normal, mood/affect normal Medical Decision Making Diagnostic Impression: Primary Impression: Encephalopathy ER Course Patient present for increased confusion. Differential diagnosis include was not limited to encephalopathy, hypoglycemia, vitamin insufficiency, encephalitis among others. Because of complexity of patient's case laboratory tests and imaging studies were ordered. Laboratory testing showed slight hematuria as well as normal white blood count. Patient appears to have some increased confusion per family member. Patient has normal cerebellar function test as well as fine motor control. There does not appear to be any dense neurologic deficit. He was given IV thiamine as well as aspirin. blood gas showed no evidence of acidosis. Dr. Michael Holcomb contacted for inpatient management Labs Test 09/25/19 11:20 09/25/19 11:45 White Blood Count 9.0 K/UL (4.8-10.8) Red Blood Count 5.55 M/UL (4.70-6.10) Hemoglobin 16.6 G/DL (14.2-18.0) Hematocrit 48.8 % (42.0-52.0) Mean Corpuscular Volume 88 FL (80-99) Mean Corpuscular Hemoglobin 29.8 PG (27.0-31.0) Mean Corpuscular Hemoglobin Concent 33.9 G/DL (32.0-36.0) Red Cell Distribution Width 11.4 % (11.6-14.8) Platelet Count 224 K/UL (150-450) Mean Platelet Volume 6.8 FL (6.5-10.1) Neutrophils (%) (Auto) 62.2 % (45.0-75.0) Lymphocytes (%) (Auto) 22.2 % (20.0-45.0) Monocytes (%) (Auto) 7.2 % (1.0-10.0) Eosinophils (%) (Auto) 7.2 % (0.0-3.0) Basophils (%) (Auto) 1.2 % (0.0-2.0) Prothrombin Time 10.4 SEC (9.30-11.50) Prothromb Time International Ratio 1.0 (0.9-1.1) Activated Partial Thromboplast Time 27 SEC (23-33) Urine Color Yellow Urine Appearance Clear Urine pH 7 (4.5-8.0) Urine Specific Platinum 1.010 (1.005-1.035) Urine Protein 2+ (NEGATIVE) Urine Glucose (UA) Negative (NEGATIVE) Urine Ketones Negative (NEGATIVE) Urine Blood 1+ (NEGATIVE) Urine Nitrite Negative (NEGATIVE) Urine Bilirubin Negative (NEGATIVE) Urine Urobilinogen Normal MG/DL (0.0-1.0) Urine Leukocyte Esterase Negative (NEGATIVE) Urine RBC 5-10 /HPF (0 - 0) Urine WBC 2-4 /HPF (0 - 0) Urine Squamous Epithelial Cells Occasional /LPF Urine Bacteria Occasional /HPF (NONE) Urine Sperm Few /LPF (NONE) Sodium Level 143 MMOL/L (136-145) Potassium Level 3.5 MMOL/L (3.5-5.1) Chloride Level 106 MMOL/L (98-107) Carbon Dioxide Level 29 MMOL/L (21-32) Anion Gap 8 mmol/L (5-15) Blood Urea Nitrogen 12 mg/dL (7-18) Creatinine 1.1 MG/DL (0.55-1.30) Estimat Glomerular Filtration Rate > 60 mL/min (>60) Glucose Level 107 MG/DL (74-106) Calcium Level 9.3 MG/DL (8.5-10.1) Total Bilirubin 0.8 MG/DL (0.2-1.0) Aspartate Amino Transf (AST/SGOT) 21 U/L (15-37) Alanine Aminotransferase (ALT/SGPT) 30 U/L (12-78) Alkaline Phosphatase 64 U/L (46-116) Troponin I 0.000 ng/mL (0.000-0.056) Total Protein 8.1 G/DL (6.4-8.2) Albumin 4.2 G/DL (3.4-5.0) Globulin 3.9 g/dL Albumin/Globulin Ratio 1.1 (1.0-2.7) Thyroid Stimulating Hormone (TSH) 1.218 uiU/mL (0.358-3.740) Salicylates Level < 0.2 ug/mL (2.8-20) Urine Opiates Screen Negative (NEGATIVE) Urine Barbiturates Screen Negative (NEGATIVE) Phencyclidine (PCP) Screen Negative (NEGATIVE) Urine Amphetamines Screen Negative (NEGATIVE) Urine Benzodiazepines Screen Negative (NEGATIVE) Urine Cocaine Screen Negative (NEGATIVE) Urine Marijuana (THC) Screen Negative (NEGATIVE) Arterial Blood pH 7.436 (7.350-7.450) Arterial Blood Partial Pressure CO2 38.9 mmHg (35.0-45.0) Arterial Blood Partial Pressure O2 66.5 mmHg (75.0-100.0) Arterial Blood HCO3 25.6 mmol/L (22.0-26.0) Arterial Blood Oxygen Saturation 93.8 % (95-100) Arterial Blood Base Excess 1.5 (-2-2) Gerard Test Positive Last Vital Signs Date Time Temp Pulse Resp B/P (MAP) Pulse Ox O2 Delivery O2 Flow Rate FiO2 09/25/19 10:57 98.2 87 19 143/97 (112) 94 Room Air Status: improved Disposition: HOME, SELF-CARE Condition: Stable Scripts Unable to Obtain Active Prescriptions or Reported Meds Kem Frances MD Sep 25, 2019 11:09
[2019-09-25] MEDS ORDERED: Thiamine HCl 100 MG in D5W 55 ML IVPB ONE (11:15)
--- NOTE | 2019-09-25 11:26 | NUR ---
ED Nurse Note: Pt came in from home with due to "being forgetful" x today. NO recent head injury, denied drug or alcohol use. Pt does NOT complain of any pain or discomfort. Medical hx of HTN, Hyperlipidemia IV initiated and medication being given. Able to make needs known. Ambulatory. NAD. Will cont to monitor.
[2019-09-25 11:33] LABS: APPEARANCE,URINE CLEAR; BILIRUBIN, URINE NEGATIVE (NEGATIVE); GLUCOSE, URINE (UA) NEGATIVE (NEGATIVE); KETONES,URINE NEGATIVE (NEGATIVE); LEUKOCYTE ESTERASE ,URINE NEGATIVE (NEGATIVE); NITRITE,URINE NEGATIVE (NEGATIVE); PH,URINE 7 (4.5-8.0); PROTEIN,URINE 2+ (NEGATIVE); UROBILINOGEN,URINE NORMAL MG/DL (0.0-1.0)
[2019-09-25 11:39] LABS: BASOPHILS % (AUTO) 1.2 % (0.0-2.0); EOSINOPHILS % (AUTO) 7.2 % (0.0-3.0); HEMATOCRIT 48.8 % (42.0-52.0); HEMOGLOBIN 16.6 G/DL (14.2-18.0); LYMPHOCYTES % (AUTO) 22.2 % (20.0-45.0); MEAN CORPUSCULAR VOLUME 88 FL (80-99); MONOCYTES % (AUTO) 7.2 % (1.0-10.0); NEUTROPHILS % (AUTO) 62.2 % (45.0-75.0); PLATELET COUNT 224 K/UL (150-450); RED BLOOD COUNT 5.55 M/UL (4.70-6.10); RED CELL DISTRIBUTION WIDTH 11.4 % (11.6-14.8)
[2019-09-25 11:46] LABS: COLOR,URINE YELLOW
[2019-09-25 11:52] LABS: ANION GAP 8 mmol/L (5-15); BLOOD UREA NITROGEN 12 mg/dL (7-18); CALCIUM 9.3 MG/DL (8.5-10.1); CARBON DIOXIDE 29 MMOL/L (21-32); CHLORIDE 106 MMOL/L (98-107); CREATININE 1.1 MG/DL (0.55-1.30); POTASSIUM 3.5 MMOL/L (3.5-5.1); SODIUM 143 MMOL/L (136-145)
[2019-09-25 11:56] LABS: ALANINE AMINOTRANSFERASE 30 U/L (12-78); ALBUMIN 4.2 G/DL (3.4-5.0); ALBUMIN/GLOBULIN RATIO 1.1 (1.0-2.7); ALKALINE PHOSPHATASE 64 U/L (46-116); ASPARTATE AMINO TRANSFERASE 21 U/L (15-37); BILIRUBIN,TOTAL 0.8 MG/DL (0.2-1.0)
--- NOTE | 2019-09-25 11:56 | Diagnostic Imaging Report ---
CT HEAD WITHOUT CONTRAST INDICATION: Reason For Exam: AMS Technique: Continuous helical CT scanning of the head was performed without intravenous contrast material. Axial and coronal 5 mm sections were generated. Radiation dose was minimized using automated exposure control DOSE: Total Dose Length Product - DLP 1394.[address] Dose Index - CTDIvol(s) 60 mGy. COMPARISON: None available FINDINGS: There is no acute intracranial hemorrhage, mass effect or cortical edema. The ventricles, cisterns and sulci are normal for age. There is calcification in the basal ganglia bilaterally. Mastoid air cells are clear. Mild mucosal thickening in multiple ethmoid air cells. Mild right maxillary sinus mucosal thickening. No focal lesions of the bony calvarium or soft tissues of the scalp are seen. IMPRESSION: No evidence of acute intracranial hemorrhage, mass effect or cortical edema. MRI may be obtained for more sensitive evaluation as clinically indicated. The CT scanner at [facility] is accredited by the [employer] and the scans are performed using protocols designed to limit radiation exposure to as low as reasonably achievable to attain images of sufficient resolution adequate for diagnostic evaluation.
[2019-09-25 12:08] VITALS: BP 129/89
--- NOTE | 2019-09-25 12:39 | NUR ---
ED Nurse Note: NO acute distress at this time. Pt does NOT complain of SOB/CP. Will cont to monitor.
--- NOTE | 2019-09-25 14:00 | NUR ---
MRI COMPLETED WAITING FOR RESULT
[2019-09-25 14:13] VITALS: BP 130/80
[2019-09-25] MEDS ORDERED: Aspirin Baby 81mg ORAL ONE (14:15)
--- NOTE | 2019-09-25 14:15 | Diagnostic Imaging Report ---
Indication: Altered mental status Technique: The head was imaged in a 1.5 Charissa magnet. Sequences obtained include sagittal and axial T1 FLAIR, axial T2 fast spin echo with fat saturation, axial T2* GRE, axial T2 FLAIR, diffusion and ADC map. Comparison: None Findings: The size, contour, and configuration of the sulci, ventricles, and basal cisterns appear normal. Parikh-white differentiation is normal. There is no restricted diffusion. There is no mass effect, midline shift, edema, or hemorrhage. There are no abnormal extra-axial or intra-axial fluid collections. The corpus callosum is unremarkable. The brainstem and cerebellum are unremarkable. The sella is unremarkable. Bone marrow signal within the visualized osseous structures appears age appropriate and unremarkable otherwise. Impression: Negative MRI brain without contrast.
--- NOTE | 2019-09-25 14:17 | NUR ---
report given to rn patient is to be transferd to [facility] in [place] via acls protocol
--- NOTE | 2019-09-25 14:22 | NUR ---
ED Nurse Note: Patient back from MRI
--- NOTE | 2019-09-25 14:33 | NUR ---
NURSE NOTES: Patient transferred from ED to tele, report received from CARLOS Hernandez. Patient AOx4, family member at the bedside, stated, patient more alert and orient. Patient AOx4 at this time, SR with HR 77, air sampling and monitoring on. IV on left AC 20G, asymptomatic, patent, intact. Patient able to ambulate gurney to hospital bed. Endorsed patient Head CT negative, Brain MRI negative. VS at this time BP 133/93, HR 70, O2 on room air 100%, T 98.1. Belonging list checked, Iphone at the bedside. Bed in lowest position, side rails upx2, call light within reach. Will continue to monitor.
--- NOTE | 2019-09-25 15:16 | NUR ---
NURSE NOTES: Paged Dr. Holcomb for admission order, awaiting for callback. Will continue to monitor.
--- NOTE | 2019-09-25 15:20 | NUR ---
NURSE NOTES: Received admission order from Dr. Holcomb. Per MD, call Dr. Hernández and Dr. Vences for further orders. Dr. Holcomb made aware patient and family member do not remember the dosage and name of home medication at this time, per , will bring in med tomorrow. Order noted, entered, carried out. Will continue to monitor.
--- NOTE | 2019-09-25 15:21 | NUR ---
NURSE NOTES: Per Dr. Holcomb resume home meds, but Per patient and family member, does no remember name and dosage for med. No new order given at this time. Will continue to follow up. Family informed to bringing in med.
[2019-09-25 16:00] VITALS: BP 133/93
[2019-09-25] MEDS: D5 1/2NS 1,000 ML IV SCH (16:17)
--- NOTE | 2019-09-25 18:41 | NUR ---
CASE MANAGEMENT: INITIAL REVIEW 48 YO M PRESENTED TO ED FROM HOME CC: AMS PMHx: HTN. KIDNEY STONE. SI:AMS. CONFUSION. T 98.2 HR 87 RR 19 B/P 143/97 SATS 94% ON RA LABS: GLU 107 ABGs PO2 66.5 O2 SAT 93.8 IS: THIAMINE IV X1 CT HEAD >> PENDING MRI BRAIN >> PENDING PATIENT ADMITTED TO TELE 09/25/2019 @ 1333 DCP: PATIENT TO BE DISCHARGED TO HOME ONCE MEDICALLY CLEARED PLAN OF CARE: PT/ST TONG
--- NOTE | 2019-09-25 19:25 | NUR ---
HAND-OFF: Report given to CARLOS Fitzpatrick.
--- NOTE | 2019-09-25 19:30 | NUR ---
NURSE NOTES: Received patient from Priscilla GONZALEZ. Patient in bed, on room air, no s/s respiratory distress. Bed in low position, locked, bed alarm on, call light within reach.
[2019-09-25 20:00] VITALS: BP 128/87
[2019-09-26] VITALS: BP 124/85
[2019-09-26 04:00] VITALS: BP 128/80
[2019-09-26] MEDS: D5 1/2NS 1,000 ML IV SCH (07:02)
[2019-09-26 07:33] LABS: BASOPHILS % (AUTO) 1.9 % (0.0-2.0); EOSINOPHILS % (AUTO) 9.1 % (0.0-3.0); HEMATOCRIT 45.4 % (42.0-52.0); HEMOGLOBIN 15.8 G/DL (14.2-18.0); LYMPHOCYTES % (AUTO) 35.4 % (20.0-45.0); MEAN CORPUSCULAR VOLUME 87 FL (80-99); MONOCYTES % (AUTO) 6.8 % (1.0-10.0); NEUTROPHILS % (AUTO) 46.7 % (45.0-75.0); PLATELET COUNT 212 K/UL (150-450); RED BLOOD COUNT 5.25 M/UL (4.70-6.10); RED CELL DISTRIBUTION WIDTH 11.3 % (11.6-14.8); WHITE BLOOD COUNT 7.6 K/UL (4.8-10.8)
--- NOTE | 2019-09-26 07:35 | NUR ---
HAND-OFF: Report given to Susy GONZALEZ.
--- NOTE | 2019-09-26 07:39 | NUR ---
NURSE NOTES: Report received from CARLOS Fitzpatrick. Pt shows no signs of distress. A+Ox4, denies pain/SOB. Respirations are even and unlabored on room air. IV site is intact and running fluids @ prescribed rate. Bed is at lowest position, brakes engaged, siderails x2, bed alarm on, and call light within reach. Pt is in stable condition at this time; will continue to monitor.
[2019-09-26 08:00] VITALS: BP 122/83
[2019-09-26 08:07] LABS: ANION GAP 7 mmol/L (5-15); BLOOD UREA NITROGEN 14 mg/dL (7-18); CALCIUM 9.1 MG/DL (8.5-10.1); CARBON DIOXIDE 28 MMOL/L (21-32); CHLORIDE 107 MMOL/L (98-107); CREATININE 0.9 MG/DL (0.55-1.30); POTASSIUM 3.5 MMOL/L (3.5-5.1); SODIUM 141 MMOL/L (136-145)
--- NOTE | 2019-09-26 09:43 | NUR ---
*-* NO INSURANCE INFORMATION IN THE BAR UNABLE TO SEND CLINICALS OR REVIEWS *-*
--- NOTE | 2019-09-26 11:35 | NUR ---
SWALLOW / SPEECH THERAPY EVAL AND DC NOTE: REFERRED FOR SWALLOW EVAL BY DR MACE, SEE EVAL DYSPHAGIA RISK FACTORS FOR THIS 48 Y.O. GREENLANDIC-SPEAKING (DELANCEY) MALE: ACUTE ISSUES: AMS, FOR A 6-8 HOUR PERIOD HE WAS FORGETFUL AND CONFUSED (YET OX4 IN ANOTHER SECTION AND IS FULLY ORIENTED NOW) NEGATIVE ON CT HEAD/MRI FOR ACUTE ISSUES BUT ON CT HEAD SCAN HAS CALCIFICATION OF BASAL GANGLIA BILATERALLY. LUNGS CLEAR PER MD, RESP RATE 19, HYPERLIPIDEMIA. H/O HTN, CARDIAC AND ENDOCRINE DISORDERS, PREDIABETES. NO POLST/ADVANCED DIRECTIVE REGARDING TUBE FEEDING PREFERENCES. [place] [facility] [place] ADMIT ON LOW NA REGULAR TEXTURE AND THIN LIQUIDS AND ON SAME TEXTURES/LIQUIDS AT HOME. ON GERD MEDS. PATIENT DENIES SWALLOWING PROBLEMS. HIS RN DID NOT REPORT ANY PROBLEMS WITH SWALLOWING MEDS NOR MEALS. FROM [place] AND ABLE TO COMMUNICATE FLUENTLY IN [place]. THE PATIENT IS ORIENTED ABLE TO RECALL NEW INFORMATION FOR CURRENT NEEDS. STATES THAT FOR ABOUT 10 YEARS, HE HAS HAD SOME INCONSISTENT RECENT MEMORY ISSUES BUT IT HAS NOT BEEN GETTING WORSE AND HE CAN FUNCTION WITH SOME STRATEGIES. HE DOES NOT KNOW WHAT THE RESULTS ARE OF HIS BRAIN SCAN. INITIAL IMPRESSIONS: GROSSLY OROMOTOR SKILLS AND FUNCTIONAL SWALLOW WITH ALL CONSISTENCIES W/O OVERT ASPIRATION QUESTIONABLE IF EVEN HAS A SILENT ASPIRATION RISK (GIVEN BRAIN SCAN RESULTS). RECOMMENDATIONS: UPGRADE TO LOW NA REGULAR DIET AND THIN LIQUIDS W/O NEED FOR ASPIRATION PRECAUTIONS. CONSIDER REFLUX PRECAUTIONS HE HAS GERD. EDUCATED PATIENT IN SOME REFLUX PRECAUTIONS. CONSIDER RD CONSULT REGARDING DIET TYPE (ANTI-REFLUX BLAND DIET NEEDED). LEFT MESSAGE WITH WALKER LAWTON. CONSIDER CONSULT OP WITH R PROGRAMMER FOR MEMORY STRATEGIES IF INDICATED POST FULL NEUROLOGY EVAL. D/W PATIENT AND RN (MINDY) AND LEFT MESSAGE WITH DR MACE. WILL DC FROM [facility] [employer] [employer] AT THIS TIME.
--- NOTE | 2019-09-26 11:57 | Cardiology Progress Note ---
Assessment/Plan Assessment/Plan The patient is seen and examined, full consult note will be dictated. Objective Last 24 Hour Vital Signs Date Time Temp Pulse Resp B/P (MAP) Pulse Ox O2 Delivery O2 Flow Rate FiO2 09/26/19 09:00 Room Air 09/26/19 08:00 74 09/26/19 08:00 97.3 80 20 122/83 (96) 96 80 09/26/19 04:00 57 09/26/19 04:00 98.4 68 17 128/80 (96) 96 09/26/19 00:00 98.2 69 18 124/85 (98) 97 09/26/19 00:00 61 09/25/19 21:00 Room Air 09/25/19 20:00 98.4 78 17 128/87 (101) 97 09/25/19 20:00 73 09/25/19 16:00 69 09/25/19 16:00 98.1 76 18 133/93 (106) 100 09/25/19 14:56 Room Air 09/25/19 14:13 98.6 78 16 130/80 98 Room Air 09/25/19 12:08 98.2 77 20 129/89 93 Room Air Intake and Output 09/25/19 09/26/19 19:00 07:00 Intake Total 176 ml 840 ml Balance 176 ml 840 ml Intake Oral 120 ml 360 ml IV Total 56 ml 480 ml # Voids 2 3 Laboratory Tests Test 09/26/19 06:27 White Blood Count 7.6 K/UL (4.8-10.8) Red Blood Count 5.25 M/UL (4.70-6.10) Hemoglobin 15.8 G/DL (14.2-18.0) Hematocrit 45.4 % (42.0-52.0) Mean Corpuscular Volume 87 FL (80-99) Mean Corpuscular Hemoglobin 30.1 PG (27.0-31.0) Mean Corpuscular Hemoglobin Concent 34.8 G/DL (32.0-36.0) Red Cell Distribution Width 11.3 % (11.6-14.8) L Platelet Count 212 K/UL (150-450) Mean Platelet Volume 6.6 FL (6.5-10.1) Neutrophils (%) (Auto) 46.7 % (45.0-75.0) Lymphocytes (%) (Auto) 35.4 % (20.0-45.0) Monocytes (%) (Auto) 6.8 % (1.0-10.0) Eosinophils (%) (Auto) 9.1 % (0.0-3.0) H Basophils (%) (Auto) 1.9 % (0.0-2.0) Sodium Level 141 MMOL/L (136-145) Potassium Level 3.5 MMOL/L (3.5-5.1) Chloride Level 107 MMOL/L (98-107) Carbon Dioxide Level 28 MMOL/L (21-32) Anion Gap 7 mmol/L (5-15) Blood Urea Nitrogen 14 mg/dL (7-18) Creatinine 0.9 MG/DL (0.55-1.30) Estimat Glomerular Filtration Rate > 60 mL/min (>60) Glucose Level 98 MG/DL (74-106) Calcium Level 9.1 MG/DL (8.5-10.1) Santi Martinez MD Sep 26, 2019 11:57
[2019-09-26 12:00] VITALS: BP 127/93
--- NOTE | 2019-09-26 12:47 | NUR ---
P.T Note: P.T evaluation completed. Based on P.T evaluation, current functional status does not warrant skilled P.T services as patient is baseline independent in all areas of ADL/functional mobilities and gait/locomotion w/i signs of deficits. D/C P.T services, Thank you for this referral.
[2019-09-26 16:00] VITALS: BP 126/97
[2019-09-26] MEDS ORDERED: Omnipaue 350mg/ml 100ml vial INJ PRN ×2 (16:00)
--- NOTE | 2019-09-26 17:15 | History and Physical Report ---
DATE OF ADMISSION: 09/25/2019 CONSULTANTS: 1. Zaynab Childress 2. Jose Vences M.D. CHIEF COMPLAINT: 1. Increased confusion. 2. Altered mental status. 3. Decreased memory. BRIEF HISTORY: This is a 48-year-old male, who lives at home, yesterday had an acute confusion as per son. The patient throughout and slightly improved throughout the afternoon, came to [facility] last night, diagnosed with the above, admitted to telemetry for further care. Currently, much better as per family and no complaint. REVIEW OF SYSTEMS: No chest pain. No shortness of breath. No nausea, vomiting, or diarrhea. PAST MEDICAL HISTORY: Include hypertension. PAST SURGICAL HISTORY: Kidney stone. MEDICATIONS: Include intravenous fluids, aspirin, and thiamine. ALLERGIES: Denies. SOCIAL HISTORY: No smoking. No alcohol. No intravenous drug abuse. FAMILY HISTORY: Noncontributory. PHYSICAL EXAMINATION: GENERAL: Calm in bed, oriented x2, in no acute distress. VITAL SIGNS: Temperature 97 degrees, pulse 80, respirations 20, and blood pressure 122/83. CARDIOVASCULAR: No murmur. LUNGS: Distant and clear. ABDOMEN: Bowel sounds positive. Soft, nontender, nondistended. EXTREMITIES: Show no cyanosis or edema. NEUROLOGIC: The patient moves all extremities, slightly weak. LABORATORY AND DIAGNOSTIC DATA: Labs at this time show CBC is normal. BMP is normal. Troponin 0.00. INR is 1.0. PTT is 27. Urine tox is negative. Urinalysis, 1+ blood and 2+ protein. ASSESSMENT: 1. Confusion. 2. Altered mental status. 3. Decreased memory. 4. Hypertension. PLAN: 1. Blood pressure control. 2. Psych treatment. 3. Neurology followup. 4. Dietary followup. 5. PT and dietary evaluation. 6. CBC and BMP in the morning. Michael Holcomb D.O. DR: KEON JOB#: [id number] CC:
--- NOTE | 2019-09-26 19:15 | NUR ---
HAND-OFF: Report given to CARLOS Ayala. Patient is in stable condition; plan of care endorsed.
--- NOTE | 2019-09-26 19:20 | NUR ---
NURSE NOTES: Received pt from CARLOS Jain. Pt is awake and resting in bed with family at bedside. a0x4. IV site intact. Bed locked in lowest position, bed locked in lowest position, call light within reach. Will continue with plan of care.
[2019-09-26 20:00] VITALS: BP 114/82
[2019-09-27] VITALS: BP 103/66
[2019-09-27] MEDS: D5 1/2NS 1,000 ML IV SCH (00:20)
[2019-09-27 04:00] VITALS: BP 106/91
--- NOTE | 2019-09-27 05:00 | Consultation ---
DATE OF CONSULTATION: CONSULTING PHYSICIAN: Louis Hernández M.D. HISTORY OF PRESENT ILLNESS: This is a 48-year-old right-handed man with a chief complaint of memory loss in the morning, in the afternoon it is apparently normal. PHYSICAL EXAMINATION: NEUROLOGIC: Normal including normal memory. IMPRESSION: Probable . With a negative MRI scan of the brain, he probably had transient global amnesia, which is sudden onset of memory loss, which only lasts less than 24 hours. In general it does not recur, although it can. due to vascular disease and/or seizure unlikely. PLAN: 1. EEG. 2. CT angiogram of the brain and neck. Thank you for this interesting case. will follow. Louis Hernández MD DR: Parisa JOB#: [id number] CC:
--- NOTE | 2019-09-27 07:06 | CDS Physician Query ---
Clarification is required for compliance, coding accuracy, and to reflect severity of illness for this patient Dear Dr. Michael Holcomb D.O. Date: 09/27/2019 Computer Science Instructor/CDS Name: Sanchez Metcalf This is a 48-year-old male, who lives at home, yesterday had an acute confusion as per son. The patient throughout and slightly improved throughout the afternoon, came to [facility] last night, diagnosed with the above, admitted to telemetry for further care. Currently, much better as per family and no complaint. "Altered Mental Status and Confusion" documented in H&P Please indicate the nature and chronicity of the condition below: [] Metabolic Encephalopathy [] Toxic Encephalopathy [] Toxic - Metabolic Encephalopathy [] Encephalopathy, Other [] Dementia with Delirium [] Hypoxic encephalopathy [] Posterior reversible encephalopathy syndrome [] Other: [] Not Applicable Present on Admission: [] Yes [] No [] Clinically Undetermined Physician signature Date Please also document in your Progress Notes and/or Discharge Summary and indicate if the condition was present on admission. MTDD
--- NOTE | 2019-09-27 07:27 | Cardiology Report ---
APPROVED REPORT EKG Measurement Heart [id number] Normal sinus rhythm Normal ECG
--- NOTE | 2019-09-27 07:35 | NUR ---
HAND-OFF: Report given to CARLOS Alexander. Endorsed plan of care.
[2019-09-27 08:00] VITALS: BP 114/82
--- NOTE | 2019-09-27 08:16 | NUR ---
NURSE NOTES: Pt in bed in low position in semi-fowlers position, call light at bedside, pt makes needs known, breakfast at bedside, Faroese speaker, seem ok to go home today, discharge is expected, IV fluids running and asymptomatic, EEG normal, pt made aware of results, no s/s of distress or sob.
[2019-09-27 08:41] LABS: BASOPHILS % (AUTO) 0.9 % (0.0-2.0); EOSINOPHILS % (AUTO) 8.1 % (0.0-3.0); HEMATOCRIT 47.5 % (42.0-52.0); HEMOGLOBIN 16.3 G/DL (14.2-18.0); LYMPHOCYTES % (AUTO) 28.5 % (20.0-45.0); MEAN CORPUSCULAR VOLUME 88 FL (80-99); MONOCYTES % (AUTO) 6.6 % (1.0-10.0); NEUTROPHILS % (AUTO) 55.8 % (45.0-75.0); PLATELET COUNT 203 K/UL (150-450); RED BLOOD COUNT 5.37 M/UL (4.70-6.10); RED CELL DISTRIBUTION WIDTH 11.3 % (11.6-14.8)
[2019-09-27 09:05] LABS: ANION GAP 6 mmol/L (5-15); BLOOD UREA NITROGEN 14 mg/dL (7-18); CALCIUM 8.9 MG/DL (8.5-10.1); CARBON DIOXIDE 30 MMOL/L (21-32); CHLORIDE 106 MMOL/L (98-107); POTASSIUM 3.3 MMOL/L (3.5-5.1); SODIUM 142 MMOL/L (136-145)
--- NOTE | 2019-09-27 09:50 | Diagnostic Imaging Report ---
Indication: Headache and memory loss Technique: IV administration nonionic contrast . Arterial phase spiral acquisitions obtained through the neck Multiplanar and 3-D reconstructions were generated. Total dose length product 3781 mGycm. CTDIvol(s) one 73 x 4, 19, 205, 42, 62 mGy. Radiation dose was minimized using automated exposure control Comparison: none Findings: There is variant branching anatomy of the great neck vessels, with an aberrant right subclavian artery demonstrated. There is mild ectasia of the aortic arch, but otherwise unremarkable aortic arch anatomy. Patent nonstenotic right common and internal carotid arteries, without evidence of significant focal narrowing. No significant atherosclerotic plaquing demonstrated. Patent nonstenotic proximal right subclavian artery. The right vertebral artery is nondominant, slightly smaller in caliber than the left, patent without evidence of significant focal stenosis. Patent nonstenotic left common and internal carotid arteries, without significant atherosclerotic plaquing or focal narrowing. Patent nonstenotic left proximal subclavian artery. Dominant left vertebral artery, patent, without evidence of significant stenosis or atherosclerotic plaque. No evidence of cervical mass or adenopathy. Upper aerodigestive tract appears unremarkable. The right maxillary sinus demonstrates minimal mucosal disease. Questionable small subcentimeter nodules are seen in the periphery of both thyroid lobes. The included upper mediastinum is unremarkable. The included lung apices are clear. Impression: Negative for evidence of significant extracranial cerebrovascular insufficiency. Minimal sinus disease All stenosis measurements are based on using the diameter of the normal distal vessel as the reference diameter The CT scanner at [facility] is accredited by the [employer] and the scans are performed using protocols designed to limit radiation exposure to as low as reasonably achievable to attain images of sufficient resolution adequate for diagnostic evaluation.
--- NOTE | 2019-09-27 09:59 | Diagnostic Imaging Report ---
Indication: Headache and memory loss Technique: IV administration nonionic contrast. Arterial phase and delayed phase spiral acquisitions obtained through the brain Multiplanar and 3-D reconstructions were generated. Total dose length product 3781 mGycm. CTDIvol(s) one 73 x 4, 19, 205, 42, 62 mGy. Radiation dose was minimized using automated exposure control Comparison: No comparison CTs. Reference made to brain CT and MRI dated 09/25/2019 Findings: Dominant left, smaller caliber right vertebral arteries, both of which are patent and nonstenotic. No evidence of significant atherosclerotic plaque. Patent nonstenotic basilar artery. Patent PICAs, superior cerebellar arteries and bilateral P1 segments of the posterior cerebral arteries. Both posterior communicating arteries are patent. Both P2 segments and proximal branches are patent without evidence of significant stenosis. Ectatic, patent, nonstenotic bilateral distal internal carotid arteries. Patent and nonstenotic bilateral M1 segments and proximal middle cerebral artery branches. Patent bilateral A1 segments and proximal anterior cerebral artery branches. An anterior communicating artery is not demonstrated. The large cerebral veins and venous sinuses are patent without evidence of thrombosis. No evidence of aneurysm or vascular malformation is demonstrated. The postcontrast images demonstrate no evidence of unusual contrast enhancement the ortega-white differentiation is normal. The ventricles and extra-axial CSF spaces are normal in caliber. The visualized orbits and sinuses are unremarkable Impression: Negative. No evidence of proximal intracranial cerebrovascular insufficiency, aneurysm or vascular malformation, or contrast enhancing lesion [place] anatomy as described The CT scanner at [facility] is accredited by the [employer] and the scans are performed using protocols designed to limit radiation exposure to as low as reasonably achievable to attain images of sufficient resolution adequate for diagnostic evaluation.
--- NOTE | 2019-09-27 10:11 | NUR ---
*-* INSURANCE *-* ALL CLINICALS AND REVIEWS HAVE BEEN FAXED TO: DASHA DUCKWORTH:BAUDILIO P: [phone] F [phone]
[2019-09-27 12:00] VITALS: BP 127/88
--- NOTE | 2019-09-27 14:18 | General Progress Note ---
Assessment/Plan Problem List: (1) HTN (hypertension) ICD Codes: I10 - Essential (primary) hypertension SNOMED: 68366380 (2) Memory change ICD Codes: R41.3 - Other amnesia SNOMED: 555874595 (3) Altered mental status ICD Codes: R41.82 - Altered mental status, unspecified SNOMED: 331159745 (4) Encephalopathy ICD Codes: G93.40 - Encephalopathy, unspecified SNOMED: 79398455 Status: stable, progressing Assessment/Plan: pt diet cbc bmp am dc plan if clear Subjective Constitutional: Reports: weakness Allergies: Coded Allergies: No Known Allergies (Unverified , 05/23/19) All Systems: reviewed and negative except above Subjective calm in bed Objective Last 24 Hour Vital Signs Date Time Temp Pulse Resp B/P (MAP) Pulse Ox O2 Delivery O2 Flow Rate FiO2 09/27/19 12:00 98.1 71 20 127/88 (101) 96 71 09/27/19 11:37 73 09/27/19 08:54 Room Air 09/27/19 08:00 98.0 87 18 114/82 (93) 95 09/27/19 07:37 73 09/27/19 04:00 97.7 56 18 106/91 (96) 96 56 09/27/19 04:00 56 09/27/19 00:00 98.4 56 18 103/66 (78) 95 56 09/27/19 00:00 56 09/26/19 21:00 Room Air 09/26/19 20:00 98.0 81 18 114/82 (93) 95 81 09/26/19 20:00 81 09/26/19 16:00 99.3 70 20 126/97 (107) 98 70 09/26/19 16:00 110 Intake and Output 09/26/19 09/27/19 19:00 07:00 Intake Total 4320 ml Balance 4320 ml Intake Oral 4320 ml # Voids 5 1 # Bowel Movements 1 Laboratory Tests 09/27/19 07:20: White Blood Count 8.0, Red Blood Count 5.37, Hemoglobin 16.3, Hematocrit 47.5, Mean Corpuscular Volume 88, Mean Corpuscular Hemoglobin 30.4, Mean Corpuscular Hemoglobin Concent 34.4, Red Cell Distribution Width 11.3L, Platelet Count 203, Mean Platelet Volume 6.9, Neutrophils (%) (Auto) 55.8, Lymphocytes (%) (Auto) 28.5, Monocytes (%) (Auto) 6.6, Eosinophils (%) (Auto) 8.1H, Basophils (%) (Auto ) 0.9, Sodium Level 142, Potassium Level 3.3L, Chloride Level 106, Carbon Dioxide Level 30, Anion Gap 6, Blood Urea Nitrogen 14, Creatinine 1.0, Estimat Glomerular Filtration Rate > 60, Glucose Level 93, Calcium Level 8.9 Height (Feet): 5 Height (Inches): 9.00 Weight (Pounds): 165 General Appearance: alert EENT: normal ENT inspection Neck: normal alignment Cardiovascular: normal peripheral pulses, normal rate, regular rhythm Respiratory/Chest: chest wall non-tender, lungs clear, normal breath sounds Abdomen: normal bowel sounds, non tender, soft Extremities: normal inspection Edema: no edema noted Arm (L), no edema noted Arm (R), no edema noted Leg (L), no edema noted Leg (R), no edema noted Pedal (L), no edema noted Pedal (R), no edema noted Generalized Neurologic: responsive, motor weakness Skin: normal pigmentation, warm/dry Michael Holcomb DO Sep 27, 2019 14:18
--- NOTE | 2019-09-27 14:44 | NUR ---
NURSE NOTES: Pt cleared by neuro and cardiac, Primary aware, PCP stated pt d/c home with hospital meds, pt made aware.
--- NOTE | 2019-09-27 15:00 | Consultation ---
DATE OF CONSULTATION: 09/26/2019 CARDIOLOGY CONSULTATION CONSULTING PHYSICIAN: Santi Martinez M.D. REFERRING PHYSICIAN: Michael Holcomb D.O. REASON FOR CONSULTATION: Management of hypertension. HISTORY OF PRESENT ILLNESS: The patient is a very unfortunate 48-year-old gentleman who was brought in by family members for altered level of consciousness. According to the family member, the patient also had increased left shoulder pain for about a few days. At the time of arrival to this facility, blood pressure was 143/97 mmHg and pulse rate was 87. A 12-lead electrocardiogram was significant for sinus rhythm, heart rate of 75. Initial evaluation in the emergency department included blood work which showed normal CBC. Creatinine of 1.1, sodium 143, glucose of 107, troponin I is 0, evidence of proteinuria, microscopic hematuria. Arterial blood gas was done in the emergency department, which showed hypoxemia with low O2 saturation 93.8%. The patient was therefore admitted to telemetry for further evaluation and management of possible encephalopathy and hypoxemia. Cardiology consultation was made at request of Dr. Holcomb to manage and evaluate hypoxemia from the cardiac standpoint. Unfortunately, the patient is not capable of providing any history. This report is prepared by using the medical record. PAST MEDICAL HISTORY: Hypertension. PAST SURGICAL HISTORY: None. MEDICATIONS: List of medications unknown. HABITS: Denies any tobacco, alcohol, or illicit drug use according to the records. FAMILY HISTORY: No premature coronary artery disease in the first-degree relatives. REVIEW OF SYSTEMS: A 12-system review done essentially negative except what was mentioned in the history of present illness. PHYSICAL EXAMINATION: VITAL SIGNS: Blood pressure was 143/97, respirations 19, pulse of 87, temperature 98.2 degrees Fahrenheit, O2 saturation 94% on room air. GENERAL: The patient is a very appearing, in no apparent respiratory distress. To me, the patient has normal coherency. There was a language barrier but at the bedside use the family members as refractory bricklayer with appropriate response. HEENT: Atraumatic and normocephalic. Anicteric. Pupils are equal, round, and reactive to light and accommodation. Extraocular muscles intact. NECK: JVP less than 5 cm. No carotid bruit. Carotid upstroke is 2+ bilaterally. CVS: Normal S1 and S2. Regular rate and rhythm. No murmurs, gallops, or rubs. PMI is at fourth intercostal space in the midclavicular line. LUNGS: Clear to auscultation bilaterally. ABDOMEN: Soft, nontender, and nondistended. No hepatosplenomegaly. Positive bowel sounds. EXTREMITIES: No evidence of edema, clubbing, or cyanosis. LABORATORY AND DIAGNOSTIC DATA: WBC was 9.0, hemoglobin 16.6, hematocrit of 48.8%, and platelet count 224,000. INR is 1.0. Troponin I is 0. Sodium 143, potassium was 3.5, chloride is 106, bicarbonate is 29, BUN is 12, creatinine 1.1, glucose is 107. Calcium 9.3. Urine drug screen was negative. ASSESSMENT AND PLAN: The patient is an very unfortunate 48-year-old gentleman, seen in Cardiology consultation. 1. Hypoxemia. According to the chest x-ray shows no acute cardiopulmonary disease. We will obtain 2D echocardiography to assess LV systolic and diastolic function. The patient does not have any prior history of coronary artery disease, congestive heart failure. Troponin I level is within normal limits; however I would like to obtain another troponin I level to rule out acute myocardial infarction. 2. History of hypertension. We will like to continue with current antihypertensive management. We will continue to monitor blood pressure during this hospitalization. 3. Proteinuria with hematuria. Nephrology consultation. I would like to thank, Dr. Holcomb, for allowing me to participate in the care of this patient. Santi Martinez M.D. DR: Dion JOB#: [id number] CC:
--- NOTE | 2019-09-27 15:32 | NUR ---
NURSE NOTES: Aftercare plan and med recon given to the patient, pt getting dressed, signed belongings sheet, pt Ox4, educated on discharge planning and followup with his pcp in two weeks. pt calling son to arrange pick remover from [employer].. vitals WNL, no s/s of distress or sob noted.
--- NOTE | 2019-09-27 15:58 | NUR ---
NURSE NOTES: Pt was walked down to medical records and walked out to front door pt will be waiting for his ride
--- NOTE | 2019-09-27 22:01 | Electroencephalogram ---
DATE OF PROCEDURE: 09/26/2019 REQUESTING PHYSICIAN: Louis Hernández M.D. READING PHYSICIAN: Johan Rhodes M.D. PROCEDURE PERFORMED: Electroencephalogram. HISTORY: This EEG was performed on a 48-year-old gentleman with a history of an alteration in mental state associated with confusion, memory loss, and hypertension. The purpose of this EEG was to evaluate the patient for the degree and type of cerebral dysfunction. TECHNICAL NOTE: This EEG was performed on a [employer] with electrodes placed on the scalp according to the International 10-20 system. Yeszx-mr-somzz and sbiau-ox-wxx montages were used. The EEG was technically satisfactory and was performed in the awake and drowsy states. OBSERVATIONS: In the best awake state, the background activity consisted of 9-10 Hz posteriorly predominant well-developed alpha waveforms, which attenuated on eye opening. Drowsiness was characterized by dissolution of the alpha rhythm and the appearance of slow frequencies in the 5-6 Hz theta range. No focal abnormalities or epileptiform discharges were seen. IMPRESSION: Normal awake and drowsy EEG. Johan Rhodes M.D., M.S.P.H. DR: KENDRA JOB#: [id number] MTDD
--- NOTE | 2019-09-27 23:49 | Cardiology Progress Note ---
Assessment/Plan Assessment/Plan 1. Hypoxemia. AMI is ruled out, 2D echo reveals normal LV systolic function with LVEF at 60%. 2. History of hypertension. On diet only. 3. Proteinuria with hematuria. Nephrology follow up. 4. Hypokalemia, KCL supplements. Subjective Subjective Sinus rhythm at rate of 71. Objective Last 24 Hour Vital Signs Date Time Temp Pulse Resp B/P (MAP) Pulse Ox O2 Delivery O2 Flow Rate FiO2 09/27/19 12:00 98.1 71 20 127/88 (101) 96 71 09/27/19 11:37 73 09/27/19 08:54 Room Air 09/27/19 08:00 98.0 87 18 114/82 (93) 95 09/27/19 07:37 73 09/27/19 04:00 97.7 56 18 106/91 (96) 96 56 09/27/19 04:00 56 09/27/19 00:00 98.4 56 18 103/66 (78) 95 56 09/27/19 00:00 56 Intake and Output 09/26/19 09/27/19 19:00 07:00 Intake Total 4320 ml Balance 4320 ml Intake Oral 4320 ml # Voids 5 1 # Bowel Movements 1 2D Echo: LVEF 60%, Grade I LVDD, RVSP 8 mmHg Laboratory Tests Test 09/27/19 07:20 White Blood Count 8.0 K/UL (4.8-10.8) Red Blood Count 5.37 M/UL (4.70-6.10) Hemoglobin 16.3 G/DL (14.2-18.0) Hematocrit 47.5 % (42.0-52.0) Mean Corpuscular Volume 88 FL (80-99) Mean Corpuscular Hemoglobin 30.4 PG (27.0-31.0) Mean Corpuscular Hemoglobin Concent 34.4 G/DL (32.0-36.0) Red Cell Distribution Width 11.3 % (11.6-14.8) L Platelet Count 203 K/UL (150-450) Mean Platelet Volume 6.9 FL (6.5-10.1) Neutrophils (%) (Auto) 55.8 % (45.0-75.0) Lymphocytes (%) (Auto) 28.5 % (20.0-45.0) Monocytes (%) (Auto) 6.6 % (1.0-10.0) Eosinophils (%) (Auto) 8.1 % (0.0-3.0) H Basophils (%) (Auto) 0.9 % (0.0-2.0) Sodium Level 142 MMOL/L (136-145) Potassium Level 3.3 MMOL/L (3.5-5.1) L Chloride Level 106 MMOL/L (98-107) Carbon Dioxide Level 30 MMOL/L (21-32) Anion Gap 6 mmol/L (5-15) Blood Urea Nitrogen 14 mg/dL (7-18) Creatinine 1.0 MG/DL (0.55-1.30) Estimat Glomerular Filtration Rate > 60 mL/min (>60) Glucose Level 93 MG/DL (74-106) Calcium Level 8.9 MG/DL (8.5-10.1) Objective HEENT: Atraumatic and normocephalic. Anicteric. Pupils are equal, round, and reactive to light and accommodation. Extraocular muscles intact. NECK: JVP less than 5 cm. No carotid bruit. Carotid upstroke is 2+ bilaterally. CVS: Normal S1 and S2. Regular rate and rhythm. No murmurs, gallops, or rubs. PMI is at fourth intercostal space in the midclavicular line. LUNGS: Clear to auscultation bilaterally. ABDOMEN: Soft, nontender, and nondistended. No hepatosplenomegaly. Positive bowel sounds. EXTREMITIES: No evidence of edema, clubbing, or cyanosis. Santi Martinez MD Sep 27, 2019 23:49
--- NOTE | 2019-09-28 07:51 | Cardiology Report ---
APPROVED REPORT EXAM: Two-dimensional and M-mode echocardiogram with Doppler and color Doppler. M-Mode DIMENSIONS IVSd0.9 (0.7-1.1cm)Left Atrium (MM)3.5 (1.6-4.0cm) LVDd5.5 (3.5-5.6cm)Aortic Root3.3 (2.0-3.7cm) PWd1.3 (0.7-1.1cm)Aortic Cusp Exc.2.0 (1.5-2.0cm) Technically difficult study due to poor acoustical windows. Normal left ventricular chamber size, systolic function and wall motion to extent visualized. Left ventricular ejection fraction estimated to be 60 %. Study quality precludes accurate assessment of regional wall motion. All other cardiac chamber sizes are within normal limits. Normal appearing aortic, mitral, and tricuspid valves. Pulmonic valve not well visualized. Mitral annulus and aortic root calcification. IVC at normal size with physiologic collapse. A color flow and spectral Doppler study was performed and revealed: Trace mitral regurgitation. Mitral diastolic velocities suggest reduced left ventricular relaxation c/w mild LV diastolic dysfunction (Grade I ). Trace tricuspid regurgitation. Tricuspid systolic velocities suggests peak right ventricular systolic pressure of 8 mmHg
--- NOTE | 2019-09-28 13:23 | NUR ---
*-* INSURANCE *-* ALL CLINICALS AND REVIEWS HAVE BEEN FAXED TO: DASHA VELAZCOM:BAUDILIO P: [phone] F [phone] & [facility] is also requesting clinicals Ref#[id number] CM: Monica #[phone] fax#[phone]
--- NOTE | 2019-09-29 14:30 | Discharge Summary ---
Discharge Summary Discharge Summary _ DATE OF ADMISSION: 09/25/2019 DATE OF DISCHARGE: 09/27/2019 DISCHARGED BY: REASON FOR ADMISSION: 48 years old male brought in to ED by family member due to increased confusion. Patient did not drink any alcohol No nausea , no vomiting. No prior history of diabetes. No seizure disorder. Patient was no on any psychiatric medications. Upon evaluation vital signs were stable. Laboratory work-up revealed no leukocytosis, stable hemoglobin and hematocrit. Urinalysis revealed no evidence of urinary tract infection , +2 protein. Stable electrolytes and renal parameters. Glucose 107. Stable LFT. Troponin negative. Albumin 4.2. Urine toxicology screen was negative. ABG on room air were stable. CT of the head revealed no acute intracranial hemorrhage, mass-effect or cortical edema. MRI of the brain was negative for any acute intracranial pathology. Patient subsequently admitted to telemetry floor for further management. CONSULTANTS: falsework builder Dr. Martinez neurologist Dr. Hernández [facility] COURSE: Patient admitted to telemetry floor. Cardiology and neurology consults were requested. Echocardiogram revealed preserved ejection fraction of 60% with no evidence of wall motion abnormality. Right ventricular systolic pressure of 8. TSH was within normal limits. Serial troponin negative. EKG revealed no acute ischemic changes. Patient was ruled out for acute myocardial infarction. Blood pressure was closely monitored and remained stable . Patient was provided with cardiac diet. Apparently blood pressure controlled with the diet only. Patient was not on any antihypertensive medication at home. Telemetry continued to show sinus rhythm , no evidence of arrhythmia. Potassium was replaced. Neurologist seen and evaluated patient. Per neurologist patient probably had transient global amnesia, which is a sudden onset of memory loss , which only last less than 24 hours. In general it does not recur, although it can. Per neurologist, it could be due to vascular disease, seizure disorder was unlikely. EEG revealed normal awake and drowsy EEG EEG. Patient was recommended to have a CT angiogram of the brain and neck , which can be done as outpatient to rule out vascular pathology. Patient clinically stabilized and was ready for discharge home. FINAL DIAGNOSES: Altered mental status likely due to transient global amnesia Memory change Hypertension Hypokalemia DISCHARGE MEDICATIONS: None DISCHARGE INSTRUCTIONS: Patient was discharged home . Follow up with primary care provider in one week. I have been assigned to dictate discharge summary for this account. I was not involved in the patient's management. Claudia Chahal NP 7, 2019 14:30
--- NOTE | 2019-09-29 16:13 | NUR ---
*-* INSURANCE *-* ALL CLINICALS AND REVIEWS HAVE BEEN FAXED TO: [facility] [employer]:BAUDILIO P: [phone] F [phone] & [facility] is also requesting clinicals Ref#[id number] CM: Monica #[phone] fax#[phone]
== END 2019-09-27 16:00 | disposition home or self-care (01) | DRG 52 ==
LOC: EMR 11:15 → 2E 13:33 → EDBEDREQ 13:58
DX: G45.4 Transient global amnesia (principal); G93.40 Encephalopathy, unspecified; I10 Essential (primary) hypertension; R09.02 Hypoxemia; E87.6 Hypokalemia; R80.9 Proteinuria, unspecified
CPT/HCPCS: 36415; 36600; 70450; 70496; 70498; 70551; 80048; 80053; 80307; 81001; 82803; 84443; 84484; 85025; 85610; 85730; 93005; 93306; 95819; 96365; 99285; G0480

== ENCOUNTER 2020-03-27 14:35 | Emergency (ER) | payer MEDICAID ==
[~2020-03-27] VITALS: Ht 167.6 cm; Wt 79.4 kg
--- NOTE | 2020-03-27 14:49 | Emergency Room Report ---
History of Present Illness General Chief Complaint: Abdominal Pain Source: Patient Present Illness HPI Patient is a 49-year-old male who presents after approximate 1 week of left- sided abdominal pain. Prior history of renal stones. Patient states his been having increased abdominal discomfort associated with some nausea and decreased appetite. Patient's had recently tested positive for franco virus. Patient denies any current fever. Reports having some diarrheal episodes without any vomiting. Previous history of kidney stones. Denies any shortness of breath or cough. Allergies: Coded Allergies: No Known Allergies (Unverified , 05/23/19) COVID-19 Screening Contact w/high risk pt: Yes Recent Travel to affected area: No Experienced COVID-19 symptoms?: No Patient History Past Medical History: see triage record Reviewed Nursing Documentation: PMH: Agreed; PSxH: Agreed Nursing Documentation-PMH Past Medical History: No Stated History Hx Hypertension: Yes Hx Cancer: No Hx Gastrointestinal Problems: No Hx Neurological Problems: No Review of Systems All Other Systems: negative except mentioned in HPI Physical Exam Vital Signs Date Time Temp Pulse Resp B/P (MAP) Pulse Ox O2 Delivery O2 Flow Rate FiO2 03/27/20 14:29 98.2 87 18 145/87 (106) 98 Room Air Sp02 EP Interpretation: reviewed, normal General Appearance: normal inspection, well appearing, no apparent distress, alert Head: atraumatic ENT: normal ENT inspection, hearing grossly normal, normal voice Neck: normal inspection, full range of motion, supple, no bony tend Respiratory: normal inspection, lungs clear, normal breath sounds, no respiratory distress, no retraction, no wheezing Cardiovascular #1: regular rate, rhythm, no edema Gastrointestinal: normal inspection, normal bowel sounds, non tender, soft, no guarding, no hernia Genitourinary: no CVA tenderness Musculoskeletal: normal inspection, back normal, normal range of motion Neurologic: alert, motor strength/tone normal, machine tech III-XII nml as tested, oriented x3, responsive, speech normal, normal inspection Psychiatric: normal inspection, judgement/insight normal, mood/affect normal Medical Decision Making Diagnostic Impression: Primary Impression: Suspected 2019 novel coronavirus infection Additional Impression: Renal colic ER Course Patient presented for abdominal discomfort. Differential diagnosis include was not limited to colitis, gastritis, renal stone, pancreatitis among others. Because of complexity of patient's case laboratory tests and imaging studies were ordered.CT imaging showed some evidence of atelectasis with stone. Patient was given prescription for medications for GI prophylaxis as well as oral antibiotic due to renal stone. Patient was noted to have some prior history of exposure to normal coronavirus and patient's oxygen level was noted to be normal. Patient does not appear to be in any respiratory distress. Patient appears to be stable stable for trial at outpatient management. Patient was advised to return if he began having any worsening shortness of breath, dizziness or other concerns. He was advised to self quarantine. Patient was advised to return if worse. Patient is advised to return if any worsening condition or if any changes in status that are concerning. This report is dictated with [employer] paper colorer software which may occasionally lead to discrepancies related to use of this software. Labs Test 03/27/20 15:13 White Blood Count 6.8 K/UL (4.8-10.8) Red Blood Count 5.47 M/UL (4.70-6.10) Hemoglobin 15.9 G/DL (14.2-18.0) Hematocrit 48.1 % (42.0-52.0) Mean Corpuscular Volume 88 FL (80-99) Mean Corpuscular Hemoglobin 29.1 PG (27.0-31.0) Mean Corpuscular Hemoglobin Concent 33.1 G/DL (32.0-36.0) Red Cell Distribution Width 12.9 % (11.6-14.8) Platelet Count 168 K/UL (150-450) Mean Platelet Volume 8.4 FL (6.5-10.1) Neutrophils (%) (Auto) 66.7 % (45.0-75.0) Lymphocytes (%) (Auto) 25.0 % (20.0-45.0) Monocytes (%) (Auto) 6.4 % (1.0-10.0) Eosinophils (%) (Auto) 1.4 % (0.0-3.0) Basophils (%) (Auto) 0.6 % (0.0-2.0) EKG Diagnostic Results Rate: normal Rhythm: NSR ST Segments: no acute changes Last Vital Signs Date Time Temp Pulse Resp B/P (MAP) Pulse Ox O2 Delivery O2 Flow Rate FiO2 03/27/20 14:29 98.2 87 18 145/87 (106) 98 Room Air Status: improved Disposition: HOME, SELF-CARE Condition: Stable Scripts Azithromycin* (ZITHROMAX*) 250 Mg Tablet 250 MG ORAL DAILY, #6 TAB 0 Refills Take two tables once daily for 1 day, then one tablet once daily for 4 days. Prov: Kem Frances MD 03/27/20 Famotidine* (Pepcid 20mg tablet*) 20 Mg Tablet 20 MG ORAL TWICE A DAY, #60 TAB 0 Refills Prov: Kem Frances MD 03/27/20 Referrals: NON PHYSICIAN (PCP) Kem Frances MD March 27, 2020 14:49
[2020-03-27 15:37] VITALS: BP 145/87
[2020-03-27 15:49] LABS: BASOPHILS % (AUTO) 0.6 % (0.0-2.0); EOSINOPHILS % (AUTO) 1.4 % (0.0-3.0); HEMATOCRIT 48.1 % (42.0-52.0); HEMOGLOBIN 15.9 G/DL (14.2-18.0); MEAN CORPUSCULAR VOLUME 88 FL (80-99); MONOCYTES % (AUTO) 6.4 % (1.0-10.0); NEUTROPHILS % (AUTO) 66.7 % (45.0-75.0); PLATELET COUNT 168 K/UL (150-450); RED BLOOD COUNT 5.47 M/UL (4.70-6.10); RED CELL DISTRIBUTION WIDTH 12.9 % (11.6-14.8); WHITE BLOOD COUNT 6.8 K/UL (4.8-10.8)
[2020-03-27 15:54] LABS: ANION GAP 14 mmol/L (5-15); BLOOD UREA NITROGEN 14 mg/dL (7-18); CALCIUM 9.3 MG/DL (8.5-10.1); CARBON DIOXIDE 22 MMOL/L (21-32); CHLORIDE 104 MMOL/L (98-107); POTASSIUM 3.3 MMOL/L (3.5-5.1); SODIUM 140 MMOL/L (136-145)
[2020-03-27 16:01] LABS: ALANINE AMINOTRANSFERASE 21 U/L (12-78); ALBUMIN/GLOBULIN RATIO 0.9 (1.0-2.7); ALKALINE PHOSPHATASE 62 U/L (46-116); ASPARTATE AMINO TRANSFERASE 21 U/L (15-37); BILIRUBIN,TOTAL 0.6 MG/DL (0.2-1.0)
[2020-03-27 16:02] LABS: INR 0.9 (0.9-1.1)
[2020-03-27] MEDS ORDERED: FAMOTIDINE20 MG ORAL (16:05)
[2020-03-27] MEDS ORDERED: ZITHROMAX250 MG ORAL (16:05)
--- NOTE | 2020-03-27 16:30 | Diagnostic Imaging Report ---
Indication: Abdominal pain Technique: Spiral acquisitions obtained through the abdomen and pelvis. No oral contrast utilized, per emergency room physician request No IV contrast utilized, for emergency room physician request.. Multiplanar reconstructions were generated. Total dose length product 329 mGycm. CTDIvol(s) 6 mGy. Dose reduction achieved using automated exposure control Comparison: 05/23/2019 Findings: Lack of enteric contrast limits assessment of the GI tract. The appendix is normal. There are colonic diverticula. No evidence of diverticulitis. Normal caliber small bowel. No free or loculated intraperitoneal gas or fluid is evident. There is a small sliding-type hiatal hernia. This is smaller and that demonstrated previously. Remainder of the stomach and duodenum are unremarkable. Small fat-containing left inguinal hernia is again demonstrated. Lack of IV contrast limits assessment of the solid organs. The liver demonstrates a subcentimeter low-attenuation lesion in the tip of segment 5, also evident previously. There is another in segment 8. Gallbladder contains opaque gallstones. No biliary ductal dilatation. The pancreas, spleen, adrenals are unremarkable. Numerous intrarenal calyceal calculi are again demonstrated and both kidneys. No ureteral calculi, hydronephrosis, or hydroureter demonstrated. The previously demonstrated large left distal ureteral calculus and resultant hydronephrosis and hydroureter are no longer evident. A cyst again comes off of the interpolar region of the right kidney as well as the lower pole of the right kidney. There is a small left lower pole cyst as well again demonstrated. No retroperitoneal or mesenteric mass or adenopathy. No pelvic mass or adenopathy. The graft again demonstrated is bilateral L5 spondylolysis and grade 1 L5 on S1 spondylolisthesis. There is also slight posterior offset of L4 on L5. The included lung bases demonstrate posterior dependent atelectatic changes on the left. Impression: Limited assessment of the GI tract, due to lack of enteric contrast administration No definite acute abnormality Bilateral nonobstructive intrarenal calculi are again demonstrated. Previously demonstrated left distal ureteral calculus and associated hydronephrosis and hydroureter are no longer evident. Colonic diverticulosis. 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
[2020-03-27 17:03] VITALS: BP 119/82
[2020-03-27 17:04] VITALS: BP 119/82
== END 2020-03-27 17:06 | disposition home or self-care (01) ==
LOC: EDBD 14:35 → EMR 14:44
DX: N23 Unspecified renal colic (principal); I10 Essential (primary) hypertension; Z20.828 Contact with and (suspected) exposure to other viral communicable diseases; R11.0 Nausea
CPT/HCPCS: 36415; 74176; 80053; 83690; 84484; 85025; 85610; 85730; 86850; 86900; 86901; 93005; 96374; 96375; J2405; J7040; S0028; Z7502; 99284